=== PATIENT | female | born 1985 | race Caucasian/White ===

== ENCOUNTER → 2018-03-01 09:13 | Outpatient (CLI) | payer MEDICAID, SELFPAY ==
[2018-03-01 10:40] LABS: Microalbumin,Random Urine 8.8 mg/L (NO RANGE EST.); Microalbumin:Creatinine Ratio 11.8 mg/g CRE (<30 mg/g CRE)
[2018-03-01 10:53] LABS: AST(SGOT) 26 U/L (15-37); Alanine Aminotransfer ALT/SGPT 43 U/L (13-56); Albumin, Serum 3.6 g/dL (3.2-5.0); Alkaline Phosphatase 73 U/L (45-117); Anion Gap 9 (5-15); BUN 15 mg/dL (7-18); BUN/Creat Ratio 27.2 RATIO (10-20); Calcium,Total 8.4 mg/dL (8.5-10.1); Chloride 106 mmol/L (98-107); Creatinine, Serum 0.55 mg/dL (0.55-1.02); EST Glomerular Filtration Rate 135 mL/min (>60); Est Glom Filt Rate - Afr Amer 164 mL/min (>60); Globulin 3.6 g/dL (2.2-4.2); Glucose 104 mg/dL (74-106); Potassium 3.7 mmol/L (3.5-5.1); Protein, Total 7.2 g/dL (6.4-8.2); Sodium Level 143 mmol/L (136-145)
== END ==
PROVIDERS: Family Provider Family Medicine; PCP Family Medicine; Visit Provider Nurse Practitioner
DX: E10.9 Type 1 diabetes mellitus without complications (principal); Z79.4 Long term (current) use of insulin
CPT/HCPCS: 36415; 80053; 82043; 82570; 83036

== ENCOUNTER → 2018-11-08 08:23 | Outpatient (CLI) | payer MEDICAID, SELFPAY ==
[2018-09-09 12:43] VITALS: BMI 27.1
[2018-11-08 09:58] LABS: Hemoglobin A1c 9.2 % (4.2-6.3)
[2018-11-08 10:01] LABS: ALB/GLOB Ratio 1.1 RATIO (0.9-2.4); AST(SGOT) 28 U/L (15-37); Alanine Aminotransfer ALT/SGPT 49 U/L (13-56); Albumin, Serum 3.8 g/dL (3.2-5.0); Alkaline Phosphatase 73 U/L (45-117); Anion Gap 6 (5-15); BUN 10 mg/dL (7-18); BUN/Creat Ratio 18.8 RATIO (10-20); Calcium,Total 8.6 mg/dL (8.5-10.1); Chloride 105 mmol/L (98-107); Cholesterol 163 mg/dL (200); Creatinine, Serum 0.53 mg/dL (0.55-1.02); EST Glomerular Filtration Rate 140 mL/min (>60); Est Glom Filt Rate - Afr Amer 170 mL/min (>60); Globulin 3.4 g/dL (2.2-4.2); Glucose 92 mg/dL (74-106); High Density Lipoprotein 58 mg/dL; Potassium 3.6 mmol/L (3.5-5.1); Protein, Total 7.2 g/dL (6.4-8.2); Sodium Level 140 mmol/L (136-145); Triglycerides 68 mg/dL; Very Low Density Lipoprotein 14 mg/dL (5-40)
[2018-11-11 15:40] LABS: HPV Reflexed? NOT INDICATED
== END ==
PROVIDERS: Family Provider Family Medicine; PCP Family Medicine; Referring Provider Nurse Practitioner; Visit Provider Nurse Practitioner
DX: E10.65 Type 1 diabetes mellitus with hyperglycemia (principal); Z12.4 Encounter for screening for malignant neoplasm of cervix
CPT/HCPCS: 36415; 80053; 80061; 83036; 88175; G0145

== ENCOUNTER → 2019-06-09 09:14 | Outpatient (CLI) | payer MEDICAID, SELFPAY ==
[2018-09-09 12:43] VITALS: BMI 27.1
[2019-06-09 10:04] LABS: Absolute Lymphocyte Count 1.27 X10^3/uL (0.83-4.51); Absolute Neutrophil Count 1.3 X10^3/uL (2.0-7.7); Basophil# 0.03 X10^3/uL; Eosinophil# 0.13 X10^3/uL; Eosinophils% 4.3 % (0-5); Hematocrit 42.3 % (37-47); Hemoglobin 13.8 g/dL (12.0-15.0); Lymphocyte # 1.27 X10^3/ul (4.0); Lymphocyte % 42.1 % (19-41); Mean Corp Hgb Conc 32.6 g/dL (32-36); Mean Corpuscular Volume 88.9 fL (81-99); Mean Platelet Vol. 10.2 fl (6.2-12.0); Monocyte# 0.26 X10^3/uL; Monocyte% 8.6 % (0-10); NRBC Flagged by Analyzer 0 % (0-5); Neutrophil # 1.33 X10^3/uL (2.7-7.7); Platelet Count 180 K/mm3 (150-450); RBC Distribution Width CV 12.8 % (11.6-14.6); RBC Distribution Width SD 42.3 fl (35.1-43.9); Red Blood Count 4.76 M/mm3 (4.2-5.4)
[2019-06-09 10:18] LABS: Hemoglobin A1c 8.2 % (4.2-6.3)
[2019-06-09 10:21] LABS: Microalbumin,Random Urine 6.4 mg/L (NO RANGE EST.)
[2019-06-09 10:34] LABS: ALB/GLOB Ratio 1.1 RATIO (0.9-2.4); AST(SGOT) 21 U/L (15-37); Alanine Aminotransfer ALT/SGPT 36 U/L (13-56); Albumin, Serum 3.7 g/dL (3.2-5.0); Alkaline Phosphatase 61 U/L (45-117); Anion Gap 4 (5-15); BUN 14 mg/dL (7-18); BUN/Creat Ratio 24.1 RATIO (10-20); Calcium,Total 8.5 mg/dL (8.5-10.1); Chloride 108 mmol/L (98-107); Cholesterol 146 mg/dL (200); Creatinine, Serum 0.58 mg/dL (0.55-1.02); EST Glomerular Filtration Rate 126 mL/min (>60); Est Glom Filt Rate - Afr Amer 153 mL/min (>60); Globulin 3.4 g/dL (2.2-4.2); Glucose 152 mg/dL (74-106); High Density Lipoprotein 57 mg/dL; Potassium 3.9 mmol/L (3.5-5.1); Protein, Total 7.1 g/dL (6.4-8.2); Sodium Level 140 mmol/L (136-145); T4 Free Direct 0.97 ng/dL (0.76-1.46); Thyroid Stim Hormone (TSH) 2.63 uIU/mL (0.358-3.74); Triglycerides 50 mg/dL; Very Low Density Lipoprotein 10 mg/dL (5-40)
== END ==
PROVIDERS: Family Provider Family Medicine; PCP Family Medicine
DX: E10.65 Type 1 diabetes mellitus with hyperglycemia (principal)
CPT/HCPCS: 80053; 80061; 82043; 82570; 83036; 84439; 84443; 85025

== ENCOUNTER → 2019-09-14 09:53 | Outpatient (CLI) | payer MEDICAID, SELFPAY ==
[2018-09-09 12:43] VITALS: BMI 27.1
[2019-09-14 12:45] LABS: AST(SGOT) 20 U/L (15-37); Alanine Aminotransfer ALT/SGPT 38 U/L (13-56); Albumin, Serum 3.7 g/dL (3.2-5.0); Alkaline Phosphatase 73 U/L (45-117); Anion Gap 4 (5-15); BUN 17 mg/dL (7-18); BUN/Creat Ratio 27.2 RATIO (10-20); Calcium,Total 8.5 mg/dL (8.5-10.1); Chloride 106 mmol/L (98-107); Creatinine, Serum 0.62 mg/dL (0.55-1.02); EST Glomerular Filtration Rate 116 mL/min (>60); Est Glom Filt Rate - Afr Amer 140 mL/min (>60); Globulin 3.7 g/dL (2.2-4.2); Glucose 136 mg/dL (74-106); Potassium 3.2 mmol/L (3.5-5.1); Protein, Total 7.4 g/dL (6.4-8.2); Sodium Level 139 mmol/L (136-145)
[2019-09-14 13:05] LABS: Hemoglobin A1c 8.6 % (4.2-6.3)
== END ==
LOC: MTLAB 09:56
PROVIDERS: PCP Family Medicine
DX: E10.9 Type 1 diabetes mellitus without complications (principal)
CPT/HCPCS: 36415; 80053; 83036

== ENCOUNTER → 2019-11-11 09:39 | Outpatient (CLI) | payer MEDICAID, SELFPAY ==
[2018-09-09 12:43] VITALS: BMI 27.1
--- NOTE | 2019-11-11 09:53 | US_ITS ---
STUDY: ABDOMINAL ULTRASOUND - RIGHT UPPER QUADRANT REASON FOR VISIT: Female, 34 years old EPIGASTRIC PAIN X 2 YEARS -INTERMITTENT TECHNIQUE: Ultrasound evaluation of the right upper quadrant was performed with real-time and static valencia-scale imaging. TECHNICAL QUALITY: Adequate. COMPARISON: None. FINDINGS: Liver: The liver measures 14.6 cm. There is normal echogenicity of the liver. The bile ducts are within normal limits. There is hepatic color flow. The direction of portal flow is hepatopetal. There is no demonstrated mass lesion. Gallbladder: Normal distended gallbladder. The gallbladder wall measures 2.9 mm. There is a negative sonographic Albrecht''s sign. There is no pericholecystic fluid. There are no gallstones. Common Bile Duct (C.B.D.): The common bile duct measures 2.7 mm. Pancreas: Normal size of the head, body and tail of the pancreas. There is normal echogenicity of the pancreas. There is no demonstrated pancreatic mass or cyst. Right Kidney: Normal size of the right kidney. The right kidney measures 11.8 cm x 4.9 cm x 5.5 cm. Normal renal cortex. The right cortex measures 2.1 cm. There is no demonstrated renal mass or cyst. There is no right hydronephrosis. US/Abdomen Limited IMPRESSION: Normal right upper quadrant ultrasound examination. Electronically Signed: Romeo Ann, at 10:35 EDT , Service support ,
[2019-11-11 10:38] LABS: Glucose 195 mg/dL (74-106)
== END ==
PROVIDERS: Internal Medicine Endocrinology, Diabetes & Metabolism; PCP Family Medicine; Referring Provider Family Medicine; Visit Provider Family Medicine
DX: R10.84 Generalized abdominal pain (principal); E10.9 Type 1 diabetes mellitus without complications
CPT/HCPCS: 36415; 76705; 82947; 84681

== ENCOUNTER → 2019-12-16 12:20 | Outpatient (CLI) | payer MEDICAID, SELFPAY ==
[2018-09-09 12:43] VITALS: BMI 27.1
[2019-12-18 08:45] LABS: HCG BETA-SUBUNIT QUANT. < 1 mIU/mL (.)
== END ==
PROVIDERS: PCP Family Medicine; Referring Provider Family Medicine; Visit Provider Family Medicine
DX: N91.0 Primary amenorrhea (principal)
CPT/HCPCS: 36415; 84702

== ENCOUNTER → 2020-03-23 09:11 | Outpatient (CLI) | payer MEDICAID, SELFPAY ==
[2018-09-09 12:43] VITALS: BMI 27.1
[2020-03-23 12:51] LABS: AST(SGOT) 21 U/L (15-37); Alanine Aminotransfer ALT/SGPT 32 U/L (13-56); Albumin, Serum 3.6 g/dL (3.2-5.0); Alkaline Phosphatase 72 U/L (45-117); Anion Gap 5 (5-15); BUN 10 mg/dL (7-18); BUN/Creat Ratio 16.3 RATIO (10-20); Calcium,Total 8.3 mg/dL (8.5-10.1); Chloride 104 mmol/L (98-107); Cholesterol 175 mg/dL (200); Creatinine, Serum 0.61 mg/dL (0.55-1.02); EST Glomerular Filtration Rate 118 mL/min (>60); Est Glom Filt Rate - Afr Amer 143 mL/min (>60); Globulin 3.7 g/dL (2.2-4.2); Glucose 240 mg/dL (74-106); High Density Lipoprotein 49 mg/dL; Potassium 3.4 mmol/L (3.5-5.1); Protein, Total 7.3 g/dL (6.4-8.2); Sodium Level 136 mmol/L (136-145); T4 Free Direct 1.06 ng/dL (0.76-1.46); Thyroid Stim Hormone (TSH) 2.41 uIU/mL (0.358-3.74); Triglycerides 66 mg/dL; Very Low Density Lipoprotein 13 mg/dL (5-40)
[2020-03-23 12:53] LABS: Microalbumin,Random Urine 5.4 mg/L (NO RANGE EST.); Microalbumin:Creatinine Ratio 6.6 mg/g CRE (<30 mg/g CRE)
[2020-03-23 12:54] LABS: Hemoglobin A1c 9.4 % (3.8-5.6)
== END ==
PROVIDERS: PCP Family Medicine
DX: E10.65 Type 1 diabetes mellitus with hyperglycemia (principal)
CPT/HCPCS: 36415; 80053; 80061; 82043; 82570; 83036; 84439; 84443

== ENCOUNTER → 2020-08-13 09:32 | Outpatient (CLI) | payer MEDICAID, SELFPAY ==
[2018-09-09 12:43] VITALS: BMI 27.1
[2020-08-13 12:56] LABS: ALB/GLOB Ratio 1.1 RATIO (0.9-2.4); AST(SGOT) 16 U/L (15-37); Alanine Aminotransfer ALT/SGPT 36 U/L (13-56); Albumin, Serum 3.7 g/dL (3.2-5.0); Alkaline Phosphatase 81 U/L (45-117); Anion Gap 4 (5-15); BUN 12 mg/dL (7-18); BUN/Creat Ratio 20.7 RATIO (10-20); Calcium,Total 8.6 mg/dL (8.5-10.1); Chloride 105 mmol/L (98-107); Creatinine, Serum 0.58 mg/dL (0.55-1.02); EST Glomerular Filtration Rate 126 mL/min (>60); Est Glom Filt Rate - Afr Amer 152 mL/min (>60); Globulin 3.3 g/dL (2.2-4.2); Glucose 181 mg/dL (74-106); Potassium 3.5 mmol/L (3.5-5.1); Sodium Level 139 mmol/L (136-145)
[2020-08-13 13:23] LABS: Hemoglobin A1c 9.3 % (3.8-5.6)
== END ==
PROVIDERS: PCP Family Medicine
DX: E10.65 Type 1 diabetes mellitus with hyperglycemia (principal)
CPT/HCPCS: 36415; 80053; 83036

== ENCOUNTER → 2021-04-05 07:42 | Outpatient (CLI) | payer MEDICAID, SELFPAY ==
[2018-09-09 12:43] VITALS: BMI 27.1
[2021-04-05 10:08] LABS: Absolute Lymphocyte Count 1.51 X10^3/uL (0.83-4.51); Absolute Neutrophil Count 2.8 X10^3/uL (2.0-7.7); Basophil# 0.04 X10^3/uL; Basophil% 0.8 % (0-1); Eosinophil# 0.14 X10^3/uL; Eosinophils% 2.8 % (0-5); Hematocrit 42.4 % (37-47); Hemoglobin 13.9 g/dL (12.0-15.0); Lymphocyte # 1.51 X10^3/ul (0.83-4.51); Lymphocyte % 30.7 % (19-41); Mean Corp Hgb Conc 32.8 g/dL (32-36); Mean Corpuscular Hgb 29.3 pg (27.0-32.0); Mean Corpuscular Volume 89.3 fL (81-99); Mean Platelet Vol. 10.3 fl (6.2-12.0); Monocyte# 0.45 X10^3/uL; Monocyte% 9.1 % (0-10); NRBC Flagged by Analyzer 0 % (0-5); Neutrophil # 2.78 X10^3/uL (2.7-7.7); Neutrophil % 56.6 % (47-70); Platelet Count 212 K/mm3 (150-450); RBC Distribution Width CV 12.1 % (11.6-14.6); RBC Distribution Width SD 40.3 fl (35.1-43.9); Red Blood Count 4.75 M/mm3 (4.2-5.4); White Blood Count 4.9 K/mm3 (4.4-11.0)
[2021-04-05 10:31] LABS: Hemoglobin A1c 6.5 % (3.8-5.6)
[2021-04-05 10:36] LABS: AST(SGOT) 24 U/L (15-37); Alanine Aminotransfer ALT/SGPT 45 U/L (13-56); Albumin, Serum 3.6 g/dL (3.2-5.0); Alkaline Phosphatase 89 U/L (45-117); Anion Gap 6 (5-15); BUN 19 mg/dL (7-18); BUN/Creat Ratio 28.5 RATIO (10-20); Calcium,Total 8.6 mg/dL (8.5-10.1); Chloride 106 mmol/L (98-107); Cholesterol 171 mg/dL (200); Creatinine, Serum 0.67 mg/dL (0.55-1.02); EST Glomerular Filtration Rate 107 mL/min (>60); Est Glom Filt Rate - Afr Amer 129 mL/min (>60); Globulin 3.7 g/dL (2.2-4.2); Glucose 140 mg/dL (74-106); High Density Lipoprotein 47 mg/dL; Potassium 3.8 mmol/L (3.5-5.1); Protein, Total 7.3 g/dL (6.4-8.2); Sodium Level 138 mmol/L (136-145); T4 Free Direct 0.89 ng/dL (0.76-1.46); Thyroid Stim Hormone (TSH) 5.48 uIU/mL (0.358-3.74); Triglycerides 100 mg/dL; Very Low Density Lipoprotein 20 mg/dL (5-40)
[2021-04-05 10:41] LABS: Microalbumin,Random Urine < 5.0 mg/L (NO RANGE EST.)
== END ==
PROVIDERS: PCP Family Medicine
DX: E10.9 Type 1 diabetes mellitus without complications (principal)
CPT/HCPCS: 36415; 80053; 80061; 82043; 82570; 83036; 84439; 84443; 85025

== ENCOUNTER → 2021-04-24 10:17 | Outpatient (CLI) | payer MEDICAID, SELFPAY ==
[2021-04-24 12:38] LABS: T4 Free Direct 0.91 ng/dL (0.76-1.46); Thyroid Stim Hormone (TSH) 1.84 uIU/mL (0.358-3.74)
== END ==
PROVIDERS: PCP Family Medicine
DX: R79.89 Other specified abnormal findings of blood chemistry (principal)
CPT/HCPCS: 36415; 84439; 84443

== ENCOUNTER → 2021-07-30 10:58 | Outpatient (CLI) | payer MEDICAID, SELFPAY ==
[2021-07-30 13:06] LABS: AST(SGOT) 17 U/L (15-37); Alanine Aminotransfer ALT/SGPT 34 U/L (13-56); Albumin, Serum 3.5 g/dL (3.2-5.0); Alkaline Phosphatase 90 U/L (45-117); Anion Gap 7 (5-15); BUN 13 mg/dL (7-18); BUN/Creat Ratio 20.8 RATIO (10-20); Calcium,Total 8.5 mg/dL (8.5-10.1); Chloride 103 mmol/L (98-107); Creatinine, Serum 0.63 mg/dL (0.55-1.02); EST Glomerular Filtration Rate 115 mL/min (>60); Est Glom Filt Rate - Afr Amer 139 mL/min (>60); Globulin 3.6 g/dL (2.2-4.2); Glucose 234 mg/dL (74-106); Potassium 3.9 mmol/L (3.5-5.1); Protein, Total 7.1 g/dL (6.4-8.2); Sodium Level 137 mmol/L (136-145); T4 Free Direct 1.02 ng/dL (0.76-1.46)
[2021-07-30 13:09] LABS: Hemoglobin A1c 6.7 % (3.8-5.6)
== END ==
PROVIDERS: PCP Family Medicine
DX: E10.9 Type 1 diabetes mellitus without complications (principal)
CPT/HCPCS: 36415; 80053; 83036; 84439; 84443

== ENCOUNTER → 2021-11-30 09:41 | Outpatient (CLI) | payer MEDICAID, SELFPAY ==
[2021-11-30 10:56] LABS: Hemoglobin A1c 6.8 % (3.8-5.6)
[2021-11-30 11:23] LABS: AST(SGOT) 35 U/L (15-37); Alanine Aminotransfer ALT/SGPT 62 U/L (13-56); Albumin, Serum 3.4 g/dL (3.2-5.0); Alkaline Phosphatase 104 U/L (45-117); Anion Gap 4 (5-15); BUN 13 mg/dL (7-18); Calcium,Total 8.5 mg/dL (8.5-10.1); Chloride 106 mmol/L (98-107); Cholesterol 157 mg/dL (200); Creatinine, Serum 0.59 mg/dL (0.55-1.02); EST Glomerular Filtration Rate 122 mL/min (>60); Est Glom Filt Rate - Afr Amer 148 mL/min (>60); Globulin 3.5 g/dL (2.2-4.2); Glucose 193 mg/dL (74-106); High Density Lipoprotein 55 mg/dL; Microalbumin,Random Urine < 5.0 mg/L (NO RANGE EST.); Potassium 3.9 mmol/L (3.5-5.1); Protein, Total 6.9 g/dL (6.4-8.2); Sodium Level 138 mmol/L (136-145); T4 Free Direct 0.89 ng/dL (0.76-1.46); Triglycerides 64 mg/dL; Very Low Density Lipoprotein 13 mg/dL (5-40)
== END ==
PROVIDERS: PCP Family Medicine
DX: E10.9 Type 1 diabetes mellitus without complications (principal)
CPT/HCPCS: 36415; 80053; 80061; 82043; 82570; 83036; 84439

== ENCOUNTER → 2022-05-29 | Outpatient (CLI) | payer MEDICAID, SELFPAY ==
[2022-05-29 12:53] LABS: ALB/GLOB Ratio 0.9 RATIO (0.9-2.4); AST(SGOT) 29 U/L (15-37); Alanine Aminotransfer ALT/SGPT 46 U/L (13-56); Albumin, Serum 3.5 g/dL (3.2-5.0); Alkaline Phosphatase 88 U/L (45-117); Anion Gap 6 (5-15); BUN 13 mg/dL (7-18); BUN/Creat Ratio 18.3 RATIO (10-20); Calcium,Total 8.8 mg/dL (8.5-10.1); Chloride 105 mmol/L (98-107); Cholesterol 170 mg/dL (200); Creatinine, Serum 0.71 mg/dL (0.55-1.02); EST Glomerular Filtration Rate 98 mL/min (>60); Est Glom Filt Rate - Afr Amer 119 mL/min (>60); Globulin 3.7 g/dL (2.2-4.2); Glucose 144 mg/dL (74-106); High Density Lipoprotein 57 mg/dL; Potassium 3.6 mmol/L (3.5-5.1); Protein, Total 7.2 g/dL (6.4-8.2); Sodium Level 140 mmol/L (136-145); Triglycerides 80 mg/dL; Very Low Density Lipoprotein 16 mg/dL (5-40)
[2022-05-29 13:27] LABS: Hemoglobin A1c 6.9 % (3.8-5.6)
[2022-05-29 14:41] LABS: Microalbumin,Random Urine < 5.0 mg/L (NO RANGE EST.)
== END | disposition home or self-care (01) ==
LOC: BIMLAB 08:17
PROVIDERS: PCP Family Medicine
DX: E10.9 Type 1 diabetes mellitus without complications (principal)
CPT/HCPCS: 36415; 80053; 80061; 82043; 82570; 83036

== ENCOUNTER → 2022-09-29 | Outpatient (CLI) | payer MEDICAID, SELFPAY ==
[2022-09-29 13:00] LABS: ALB/GLOB Ratio 0.9 RATIO (0.9-2.4); AST(SGOT) 19 U/L (15-37); Alanine Aminotransfer ALT/SGPT 39 U/L (13-56); Albumin, Serum 3.6 g/dL (3.2-5.0); Alkaline Phosphatase 82 U/L (45-117); Anion Gap 9 (5-15); BUN 14 mg/dL (7-18); BUN/Creat Ratio 20.6 RATIO (10-20); Calcium,Total 8.8 mg/dL (8.5-10.1); Chloride 102 mmol/L (98-107); Creatinine, Serum 0.68 mg/dL (0.55-1.02); EST Glomerular Filtration Rate 104 mL/min (>60); Est Glom Filt Rate - Afr Amer 125 mL/min (>60); Glucose 96 mg/dL (74-106); Potassium 3.8 mmol/L (3.5-5.1); Protein, Total 7.6 g/dL (6.4-8.2); Sodium Level 139 mmol/L (136-145); Thyroid Stim Hormone (TSH) 3.33 uIU/mL (0.358-3.74)
[2022-09-29 13:08] LABS: Hemoglobin A1c 6.4 % (3.8-5.6)
== END | disposition home or self-care (01) ==
PROVIDERS: PCP Family Medicine
DX: E10.9 Type 1 diabetes mellitus without complications (principal)
CPT/HCPCS: 36415; 80053; 83036; 84439; 84443

== ENCOUNTER → 2023-03-09 | Outpatient (CLI) | payer MEDICAID, SELFPAY ==
[2023-03-09 13:11] LABS: ALB/GLOB Ratio 0.9 RATIO (0.9-2.4); AST(SGOT) 21 U/L (15-37); Alanine Aminotransfer ALT/SGPT 31 U/L (13-56); Albumin, Serum 3.5 g/dL (3.2-5.0); Alkaline Phosphatase 81 U/L (45-117); Anion Gap 4 (5-15); BUN 7 mg/dL (7-18); BUN/Creat Ratio 10.6 RATIO (10-20); Calcium,Total 8.8 mg/dL (8.5-10.1); Chloride 107 mmol/L (98-107); Cholesterol 157 mg/dL (200); Creatinine, Serum 0.66 mg/dL (0.55-1.02); EST Glomerular Filtration Rate 107 mL/min (>60); Est Glom Filt Rate - Afr Amer 130 mL/min (>60); Globulin 3.7 g/dL (2.2-4.2); Glucose 184 mg/dL (74-106); High Density Lipoprotein 54 mg/dL; Potassium 4.1 mmol/L (3.5-5.1); Protein, Total 7.2 g/dL (6.4-8.2); Sodium Level 138 mmol/L (136-145); Triglycerides 78 mg/dL; Very Low Density Lipoprotein 16 mg/dL (5-40)
[2023-03-09 13:30] LABS: Hemoglobin A1c 7.1 % (3.8-5.6)
== END | disposition home or self-care (01) ==
PROVIDERS: PCP Family Medicine
DX: E10.9 Type 1 diabetes mellitus without complications (principal)
CPT/HCPCS: 36415; 80053; 80061; 83036

== ENCOUNTER → 2023-07-06 | Outpatient (CLI) | payer MEDICAID, SELFPAY ==
[2023-07-06 12:40] LABS: Microalbumin,Random Urine 5.3 mg/L (NO RANGE EST.); Microalbumin:Creatinine Ratio 6.6 mg/g CRE (<30 mg/g CRE)
[2023-07-06 12:47] LABS: ALB/GLOB Ratio 1.1 RATIO (0.9-2.4); AST(SGOT) 18 U/L (15-37); Alanine Aminotransfer ALT/SGPT 31 U/L (13-56); Albumin, Serum 3.5 g/dL (3.2-5.0); Alkaline Phosphatase 55 U/L (45-117); Anion Gap 4 (5-15); BUN 12 mg/dL (7-18); BUN/Creat Ratio 16.4 RATIO (10-20); Calcium,Total 8.2 mg/dL (8.5-10.1); Chloride 105 mmol/L (98-107); Creatinine, Serum 0.73 mg/dL (0.55-1.02); EST Glomerular Filtration Rate 95 mL/min (>60); Est Glom Filt Rate - Afr Amer 115 mL/min (>60); Globulin 3.2 g/dL (2.2-4.2); Glucose 204 mg/dL (74-106); Potassium 3.9 mmol/L (3.5-5.1); Protein, Total 6.7 g/dL (6.4-8.2); Sodium Level 138 mmol/L (136-145); Thyroid Stim Hormone (TSH) 3.01 uIU/mL (0.358-3.74)
[2023-07-06 13:05] LABS: Hemoglobin A1c 6.9 % (3.8-5.6)
== END | disposition home or self-care (01) ==
LOC: BIMLAB 09:01
PROVIDERS: PCP Family Medicine
DX: E10.9 Type 1 diabetes mellitus without complications (principal)
CPT/HCPCS: 36415; 80053; 82043; 82570; 83036; 84439; 84443

== ENCOUNTER → 2023-11-06 | Outpatient (CLI) | payer MEDICAID, SELFPAY ==
--- OUTSIDE RECORDS SUMMARY | 2023-11-06 08:29 | XMS RPT_ITS | CCD ---
Author Name Unknown Address [address] [place] [address] Organization [facility] Care Team Providers Care Ore Charger Name Role Phone ELY LEVY Unavailable Unavasusana pugh BENEKOS, DORENE L Unavailable Unavailable PAVEL, GERARDO J Unavailable Unavailable HUNT, HIPOLITO Unavailable Unavailable BENEKOS, DORENE L Unavailable Unavailable PAVEL, GERARDO J Unavailable Unavailable TOVA, ERIK T Unavailable Unavailable BENEKOS, DORENE L Unavailable Unavailable PAVEL, GERARDO J Unavailable Unavailable TOVA, ERIK T Unavailable Unavailable BENEKOS, DORENE L Unavailable Unavailable PAVEL, GERARDO J Unavailable Unavailable TOVA, ERIK T Unavailable Unavailable BENEKOS, DORENE L Unavailable Unavailable PAVEL, GERARDO J Unavailable Unavailable TOVA, ERIK T Unavailable Unavailable BENEKOS, DORENE L Unavailable Unavailable PAVEL, GERARDO J Unavailable Unavailable BENEKOS, DORENE L Unavailable Unavailable HUNT, HIPOLITO Unavailable Unavailable PAVEL, GERARDO J Unavailable Unavailable BENEKOS, DORENE L Unavailable Unavailable HUNT, HIPOLITO Unavailable Unavailable PAVEL, GERARDO J Unavailable Unavailable TOVA, ERIK T Unavailable Unavailable BENEKOS, DORENE L Unavailable Unavailable PAVEL, GERARDO J Unavailable Unavailable TOVA, ERIK T Unavailable Unavailable BENEKOS, DORENE L Unavailable Unavailable PAVEL, GERARDO J Unavailable Unavailable BENEKOS, DORENE L Unavailable Unavailable HUNT, HIPOLITO Unavailable Unavailable PAVEL, GERARDO J Unavailable Unavailable TOVA, ERIK T Unavailable Unavailable BENEKOS, DORENE L Unavailable Unavailable PAVEL, GERARDO J Unavailable Unavailable TOVA, ERIK T Unavailable Unavailable BENEKOS, DORENE L Unavailable Unavailable PAVEL, GERARDO J Unavailable Unavailable TOVA, ERIK T Unavailable Unavailable BENEKOS, DORENE L Unavailable Unavailable PAVEL, GERARDO J Unavailable Unavailable TOVA, ERIK T Unavailable Unavailable BENEKOS, DORENE L Unavailable Unavailable PAVEL, GERARDO J Unavailable Unavailable TOVA, ERIK T Unavailable Unavailable BENEKOS, DORENE L Unavailable Unavailable PAVEL, GERARDO J Unavailable Unavailable TOVA, ERIK T Unavailable Unavailable BENEKOS, DORENE L Unavailable Unavailable PAVEL, GERARDO J Unavailable Unavailable TOVA, ERIK T Unavailable Unavailable BENEKOS, DORENE L Unavailable Unavailable PAVEL, GERARDO J Unavailable Unavailable BENEKOS, DORENE L Unavailable Unavailable PAVEL, GERARDO J Unavailable Unavailable DUNCAN, ERIK L Unavailable Unavailable BENEKOS, DORENE L Unavailable Unavailable PAVEL, GERARDO J Unavailable Unavailable DUNCAN, ERIK L Unavailable Unavailable BENEKOS, DORENE L Unavailable Unavailable PAVEL, GERARDO J Unavailable Unavailable EHRENBERG BUCHNER, ELY Unavailable Unavai lable BENEKOS, DORENE L Unavailable Unavailable PAVEL, GERARDO J Unavailable Unavailable EHRENBERG BUCHNER, ELY Unavailable Unavai lable TOVA, ERIK T Unavailable Unavailable BENEKOS, DORENE L Unavailable Unavailable PAVEL, GERARDO J Unavailable Unavailable TOVA, ERIK T Unavailable Unavailable ZEINA CHAPIN M Unavailable Unavailable PAVEL, GERARDO J Unavailable Unavailable BENEKOS, DORENE L Unavailable Unavailable HUNT, HIPOLITO Unavailable Unavailable PAVEL, GERARDO J Unavailable Unavailable BENEKOS, DORENE L Unavailable Unavailable PAVEL, GERARDO J Unavailable Unavailable BACAK, MESERET J Unavailable Unavailable BENEKOS, DORENE L Unavailable Unavailable HUNT, HIPOLITO Unavailable Unavailable PAVEL, GERARDO J Unavailable Unavailable BENEKOS, DORENE L Unavailable Unavailable HUNT, HIPOLITO Unavailable Unavailable PAVEL, GERARDO J Unavailable Unavailable HUNT, HIPOLITO Unavailable Unavailable PAVEL, GERARDO J Unavailable Unavailable DUNCAN, ERIK L Unavailable Unavailable PAVEL, GERARDO J Unavailable Unavailable BACAK, MESERET J Unavailable Unavailable BACAK, MESERET J Unavailable Unavailable EHRENBERG BUCHNER, ELY Unavailable Unavai lable EHRENBERG BUCHNER, ELY Unavailable Unavai lable KENNA ROWAN Unavailable Unavailab le HUNT, HIPOLITO Unavailable Unavailable HUNT, HIPOLITO Unavailable Unavailable EHRENBERG, ELY Unavailable Unavailable EHRENBERG, ELY Unavailable Unavailable KENNA DEMPSEY Unavailable Unavailable Marina Ley Primary Care Provider Moncho Greco Primary Care Provider CruzMoncho Cesar Primary Care Provider Unavailabl e Marina Ley Ashley Primary Care Provider [phone] Marina Ley Ashley Primary Care Provider Av RECINOS, Marina Cristinaer Primary Care Provider Av RECINOS, Marina Ashley Primary Care Provider Marina Ley MD Primary Care Provider [phone] REBECCA MEDEIROS Attending Unavailable JOLLIFF, MARINA ASHLEY Primary Care Unavailable JOLLLAM, MARINA ASHLEY Primary Care Unavailable JARRETT WAITE Attending Unavailab MARION Wan Attending Unavailable JOLLIFF, MARINA ASHLEY Primary Care Unavailable JOLLLAM, MARINA ASHLEY Primary Care Unavailable REBECCA MEDEIROS Attending Unavailable JOLLIFF, MARINA ASHLEY Primary Care Unavailable REBECCA MEDEIROS Attending Unavailable JOLLIFF, MARINA ASHLEY Primary Care Unavailable MARION URIAS Attending Unavailable Allergies Allergy Classification Reported Allergen(s) Allergy Type Date of Onset Reaction(s) Facility HMG-CoA Reductase Inhibitors (statins) (1 source) Lovastatin Drug Allergy 9 [facility] (20 sources) lovastatin; Translations: [LOVASTATIN] Drug Allergy 5 Other: See Comments [facility] Repository Medications Current Medications Medication Drug Class(es) Dates Sig (Normalized) Sig (Original) blood-glucose meter Misc (14 sources) Start: 09-06-2020 blood-glucose meter Misc Use to check BG 4 times daily. Dg code E11.65 . 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; Translations: [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] Onset: 08-08-2017 Chronic Other screening for suspected conditions (not mental disorders or infectious disease) (1 source) Raised TSH level; Translations: [Other specified abnormal findings of blood chemistry] Episodic Unclassified (1 source) Unknown / UNK(Unknown) Onset: 08-12-2017 Past or Other Problems Problem Classification Problem Date Documented Date Episodic/Chronic Cardiac dysrhythmias (1 source) Palpitations; Translations: [Palpitations] Onset: 08-26-2016 08-26-2016 Episodic Diabetes mellitus without complication (1 source) Insulin pump present; Translations: [Insulin pump status] Onset: 04-10-2016 08-08-2017 Episodic Diabetes mellitus without complication (1 source) Diabetes mellitus without complication Onset: 08-12-2017 Other nervous system disorders (1 source) Other acute postprocedural pain; Translations: [Other acute postprocedural pain] Onset: 08-08-2017 Episodic Polyhydramnios and other problems of amniotic cavity (2 sources) premature rupture of membranes, onset of labor within 24 hours of rupture, unspecified trimester; Translations: [ premature rupture of membranes ] Onset: 08-08-2017 08-08-2017 Episodic Results Test Name Value Interpretation Reference Range Facil ity Vital Signs Date Time Vital Sign Value Performing Clinician Zainab estes 07-13-2023 09:10-0500 Body mass index (BMI) [Ratio] 35.43 kg/m2 Jarrett Waite CNP Work Phone: [facility] 07-13-2023 09:10-0500 Body weight 90.72 kg Jarrett Waite CNP Work Phone: [facility] 07-13-2023 09:10-0500 Diastolic blood pressure 84 mm[Hg] Jarrett Waite CNP Work Phone: [facility] 07-13-2023 09:10-0500 Heart rate 87 /min Jarrett Waite CNP Work Phone: [facility] 07-13-2023 09:10-0500 Systolic blood pressure 126 mm[Hg] Jarrett Blas ANODIZER Work Phone: [facility] 03-11-2023 08:55-0400 Body height 160 cm Marion Urias CNP Work Phone: [facility] 03-11-2023 08:55-0400 Body mass index (BMI) [Ratio] 35.43 kg/m2 Marion Urias CNP Work Phone: [facility] 03-11-2023 08:55-0400 Body weight 90.72 kg Marion Urias CNP Work Phone: [facility] 03-11-2023 08:55-0400 Diastolic blood pressure 78 mm[Hg] Marion Urias CNP Work Phone: [facility] 03-11-2023 08:55-0400 Heart rate 89 /min Marion Urias CNP Work Phone: [facility] 03-11-2023 08:55-0400 Systolic blood pressure 117 mm[Hg] Marion Urias CNP Work Phone: [facility] 06-02-2022 11:06-0400 Body height 160 cm Marion Urias CNP Work Phone: [facility] 06-02-2022 11:06-0400 Body mass index (BMI) [Ratio] 35.78 kg/m2 Marion Urias CNP Work Phone: [facility] 06-02-2022 11:06-0400 Body weight 91.63 kg Marion Urias CNP Work Phone: [facility] 06-02-2022 11:06-0400 Diastolic blood pressure 82 mm[Hg] Marion Urias CNP Work Phone: [facility] 06-02-2022 11:06-0400 Heart rate 76 /min Marion Urias CNP Work Phone: [facility] 06-02-2022 11:06-0400 Systolic blood pressure 128 mm[Hg] Marion Urias CNP Work Phone: [facility] 12-02-2021 11:15-0400 Body height 160 cm Xu Blas Work Phone: [facility] 12-02-2021 11:15-0400 Body mass index (BMI) [Ratio] 35.69 kg/m2 Xu Kleinmann PA-C Work Phone: [facility] 12-02-2021 11:15-0400 Body weight 91.4 kg Xu Kleinmann PA- C Work Phone: [facility] 12-02-2021 11:15-0400 Diastolic blood pressure 75 mm[Hg] Xu Kleinmann PA-C Work Phone: [facility] 12-02-2021 11:15-0400 Heart rate 82 /min Xu Kleinmann PA- C Work Phone: [facility] 12-02-2021 11:15-0400 Systolic blood pressure 115 mm[Hg] Xu Kleinmann PA-C Work Phone: [facility] 08-05-2021 11:02-0500 Body height 160 cm Marion Urias BEAMER HAND Work Phone: [facility] 08-05-2021 11:02-0500 Body mass index (BMI) [Ratio] 34.77 kg/m2 Marion Urias BEAMER HAND Work Phone: [facility] 08-05-2021 11:02-0500 Body weight 89.04 kg Marion Urias BEAMER HAND Work Phone: [facility] 08-05-2021 11:02-0500 Diastolic blood pressure 78 mm[Hg] Marion Urias BEAMER HAND Work Phone: [facility] 08-05-2021 11:02-0500 Heart rate 74 /min Marion Urias BEAMER HAND Work Phone: [facility] 08-05-2021 11:02-0500 Systolic blood pressure 125 mm[Hg] Marion Urias BEAMER HAND Work Phone: [facility] 04-08-2021 11:08-0400 Body height 160 cm Xu Kleinmann PA- C Work Phone: [facility] 04-08-2021 11:08-0400 Body mass index (BMI) [Ratio] 33.83 kg/m2 Xu Kleinmann PA-C Work Phone: [facility] 04-08-2021 11:08-0400 Body weight 86.64 kg Xu Stevensmann PA- C Work Phone: [facility] 04-08-2021 11:08-0400 Diastolic blood pressure 80 mm[Hg] Xu Kleinmann PA-C Work Phone: [facility] 04-08-2021 11:08-0400 Heart rate 77 /min Xu Stevensmann PA- C Work Phone: [facility] 04-08-2021 11:08-0400 Systolic blood pressure 127 mm[Hg] Xu Kleinmann PA-C Work Phone: [facility] 12-04-2020 10:42-0400 BMI (Body Mass Index) 31.53 kg/m2 Jarrett Waite [facility] 12-04-2020 10:42-0400 Body weight 80.74 kg Jarrett [facility] 12-04-2020 10:42-0400 BP Diastolic 76 mm[Hg] Jarrett [facility] 12-04-2020 10:42-0400 BP Systolic 113 mm[Hg] Jarrett [facility] 12-04-2020 10:42-0400 Height 160 cm Jarrett [facility] 12-04-2020 10:42-0400 Pulse (Heart Rate) 75 /min Jarrettshaun Waite [facility] 09-05-2020 10:53-0500 BMI (Body Mass Index) 28.36 kg/m2 Emmy Jacob [facility] 09-05-2020 10:53-0500 Body weight 74.84 kg Emmy Jacob [facility] 09-05-2020 10:53-0500 BP Diastolic 75 mm[Hg] Emmy Jacob [facility] 09-05-2020 10:53-0500 BP Systolic 119 mm[Hg] Emmy Jacob [facility] 09-05-2020 10:53-0500 Height 162.5 cm Emmy Jacob [facility] 09-05-2020 10:53-0500 Pulse (Heart Rate) 83 /min Emmy Jacob [facility] 03-26-2020 10:34-0400 BMI (Body Mass Index) 28.24 kg/m2 Marion Urias [facility] 03-26-2020 10:34-0400 Body weight 74.53 kg Marion Urias [facility] 03-26-2020 10:34-0400 BP Diastolic 78 mm[Hg] Marion Urias [facility] 03-26-2020 10:34-0400 BP Systolic 120 mm[Hg] Marion Urias [facility] 03-26-2020 10:34-0400 Pulse (Heart Rate) 73 /min Marion Urias [facility] 03-26-2020 10:34-0400 Pulse Oximetry 98 % Marion Urias [facility] 03-26-2020 10:34-0400 Respiratory Rate 18 /min Marionmichi Urias [facility] 09-21-2019 11:30-0500 BMI (Body Mass Index) 29.9 kg/m2 Marionmichi Urias [facility] 09-21-2019 11:30-0500 Body weight 78.93 kg Marion Urias [facility] 09-21-2019 11:30-0500 BP Diastolic 72 mm[Hg] Marionmichi Urias [facility] 09-21-2019 11:30-0500 BP Systolic 123 mm[Hg] Marionmichi Urias [facility] 09-21-2019 11:30-0500 Height 162.5 cm Marion Urias [facility] 09-21-2019 11:30-0500 Pulse (Heart Rate) 85 /min Marion Urias [facility] 06-20-2019 11:12-0400 BMI (Body Mass Index) 28.44 kg/m2 [facility] 06-20-2019 11:12-0400 Body weight 75.07 kg [facility] 06-20-2019 11:12-0400 BP Diastolic 74 mm[Hg] [facility] 06-20-2019 11:12-0400 BP Systolic 112 mm[Hg] [facility] 06-20-2019 11:12-0400 Height 162.5 cm [facility] 06-20-2019 11:12-0400 Pulse (Heart Rate) 76 /min [facility] 03-17-2019 11:09-0400 BP Diastolic 79 mm[Hg] [facility] 03-17-2019 11:09-0400 BP Systolic 120 mm[Hg] [facility] 03-17-2019 11:09-0400 Pulse (Heart Rate) 76 /min [facility] 11:05-0400 BMI (Body Mass Index) 27.5 kg/m2 Xu Reid [facility] 03-17-2019 11:05-0400 Body [facility] 11:050400 Height [facility].6 [facility] Encounter Date Encounter Type Care Provider Facility Start: 10-12-2023 ambulatory MARINA LEY [facility]: [facility]: 07-13-2023 End: 07-13-2023 ambulatory MARINA LEY [facility] Start: 07-13-2023 End: 07-13-2023 Office outpatient visit 25 minutes Jarrett Waite CNP Work Phone: [facility] Procedures Date Procedure Procedure Detail Performing Clinician Start: 07-06-2023 Microalbumin [Mass/v olume] in Urine by Test strip Jarrett Waite CNP Work Phone: Start: 03-11-2023 3 comp foot exam completed Marion Urias CNP Work Phone: Start: 10-06-2022 3 comp foot exam completed Jarrett Waite CNP Work Phone: Start: 06-02-2022 3 comp foot exam completed Marion Urias CNP Work Phone: Start: 12-02-2021 MISCELLANEOUS DME EQUIPMENT Xu Reid PA-C Work Phone: Start: 12-02-2021 3 comp foot exam completed Xu Reid PA-C Work Phone: Start: 11-30-2021 EXT LAB COMPREHENSIV E METABOLIC Xu Reid PA-C Work Phone: Start: 11-30-2021 EXT LAB MICROALBUMIN/CREATININE RATIO Xu Reid PA-C Work Phone: Start: 11-30-2021 EXT LAB T4, FREE Xu Reid PA-C Work Phone: Start: 11-30-2021 Hemoglobin A1c/Hemoglobin.total in Blood Xu Reid PA-C Work Phone: Start: 11-30-2021 Plasma lipid measurement Xu Reid PA-C Work Phone: Start: 08-05-2021 3 comp foot exam completed Marion Urias CNP Work Phone: Start: 04-08-2021 3 comp foot exam completed Xu Reid PA-C Work Phone: Start: 12-04-2020 3 comp foot exam completed Jarrett Waite Start: 09-05-2020 3 comp foot exam completed Emmy Jacob Start: 09-21-2019 3 comp foot exam completed Marion Urias Start: 06-09-2019 Microalbumin [Mass/v olume] in Urine by Test strip Xu Reid PA-C Work Phone: Start: 03-17-2019 Hemoglobin A1c/Hemoglobin.total in Blood Xu Reid Work Phone: Start: 03-17-2019 3 comp foot exam completed Xu Reid Start: 04-11-2015 CONVERTED CYTOLOGY ENGINEERING TECHNICAL ANALYST Zeina Martini Work Phone: Plan of Treatment Date Care Activity Detail Author Start: 08-10-2027 Tetanus vaccination [facility] Start: 08-10-2027 Urine microalbumin profile DTAP,TDAP,TD (2 - Td) [facility] Start: 07-06-2024 Urine screening for protein Urine Microalbumin [facility] Start: 03-11-2024 Diabetic foot examination Foot Exam [facility] Start: 01-04-2024 Hemoglobin A1c measurement A1C [facility] Start: 11-13-2023 End: 11-13-2023 Patient encounter procedure 11/13/2023 9:45 AM EDT Office Visit [facility] [address] [place] [phone] Jarrett Waite, [place] [address] [place] [address] [facility] Start: 10-23-2023 End: 07-13-2024 Complete blood count with white cell differential, manual CBC and Differential Lab Routine Type 1 diabetes mellitus without complication (HCC) Expected: 10/23/2023, Expires: 07/13/2024 [facility] Payers Date Payer Category Payer Medicaid [id number] 2017 Medicaid [facility] xxxxxxxxxxx 2017-Present xxxxxxxxxxx [id number] 2017 Medicaid [id number] 2017 Medicaid [id number] 2017 Unknown [id number] 2011 Unknown [employer] PPO [id number] 2011-2015 PPO [id number] 1985 Unknown [id number] 1985 Unknown [id number] 1985 Unknown [id number] 1985 Unknown [id number] 1985 Unknown [id number] 1985 Unknown [id number] Social History Date Type Detail Facility Start: 03-17-2019 End: 10-06-2022 Tobacco smoking status NHIS Never smoker [facility] Start: 1985 Sex Assigned At Not on file [facility] Start: 10-21-2011 End: 10-06-2022 Tobacco use and exposure Never used [facility] Start: 10-21-2011 Alcohol intake Current non-dr boarding room fixer of alcohol (finding) [facility] Start: 11-22-2021 End: 06-02-2022 Exposure to SARS-CoV-2 (event) Not sure [facility] Start: 10-06-2022 End: 03-11-2023 History of Social function [facility] Start: 10-06-2022 End: 03-11-2023 Tobacco use panel [facility] Start: 10-06-2022 Gender identity Identifies as female gender (finding) [facility] Start: 10-06-2022 Sexual orientation Heterosexual (fin ding) [facility] Medical Equipment Procedure Code Equipment Code Equipment Origin al Text Equipment Identifier Dates [id number], [id number] Star t: 09-01-2011 Clinical Notes 04-08-2021 to 07-13-2023 Jarrett Waite, [place] - 07/13/2023 9:27 AM ESTPatient InstructionsMarion Urias, [place] - 03/11/2023 9:00 AM EDTPatient InstructionsMarion Urias CNP - 06/02/2022 11:13 AM EDT Note Date & Type Note Facility 07-13-2023 History of Presen t illness Narrative Images from the original note were not included. Patient ID: Matthew Patton is a 37 y.o. female 1985 Subjective: Matthew Patton presents for follow up of Type 1 diabetes Diagnosed at 16 years old HPI Ms. Patton is a 37-year-old female patient who presents the office today for follow-up of her type 1 diabetes. She is currently utilizing a T-Slim insulin pump and a Dexcom CGM in control IQ, both were downloaded and reviewed today. She denies any significant complaints today and reports has been feeling well. Current Outpatient Medications Medication Sig Dispense Refill blood sugar diagnostic (glucose blood) strips Use as directed: four times daily. E11.65 . 150 each 11 blood-glucose meter Misc Use to check BG 4 times daily. Dg code E11.65 . 150 each 11 blood-glucose sensor (Dexcom G6 Sensor) Cindy Use to check blood sugar four times daily . 3 each 0 insulin aspart U-100 (NovoLOG) 100 unit/mL injection Use as directed via insulin pump approx. 100 units daily total. . 30 mL 5 lancets Misc Use to check BG 4 times daily. Dg code E11.65 Use what is covered by insurance. May get 90 day if insurance allows and cheaper for pt. . 200 each 11 vitamin with Ca-Iron-FA 27-1 mg Tab Take 1 (one) tablet by mouth daily . No current facility-administered medications for this visit. Review of Systems: Review of Systems Constitutional: Negative for activity change, appetite change, fatigue and unexpected weight change. Eyes: Negative for photophobia and visual disturbance. Respiratory: Negative for chest tightness and shortness of breath. Cardiovascular: Negative for chest pain, palpitations and leg swelling. Gastrointestinal: Negative for abdominal pain, constipation, diarrhea, nausea and vomiting. Endocrine: Negative for cold intolerance, heat intolerance, polydipsia, polyphagia and polyuria. Genitourinary: Negative for difficulty urinating and frequency. Musculoskeletal: Negative for arthralgias and myalgias. Skin: Negative for rash and wound. Neurological: Negative for dizziness, weakness and numbness. Psychiatric/Behavioral: Negative for confusion and sleep disturbance. The patient is not nervous/anxious. The following portions of the patient's history were reviewed and updated as appropriate: allergies, current medications, past family history, past medical history, past social history, past surgical history and problem list. Objective: BP 126/84 Pulse 87 Wt 90.7 kg (200 lb) BMI 35.43 kg/m Wt Readings from Last 3 Encounters: 07/13/23 90.7 kg (200 lb) 03/11/23 90.7 kg (200 lb) 10/06/22 93.1 kg (205 lb 4.8 oz) Physical Exam: Physical Exam General: alert, appears stated age and cooperative Eyes: conjunctivae/corneas clear. PERRL, EOM's intact. Neck: no adenopathy, supple, symmetrical, trachea midline. Thyroid: No thyromegaly appreciated Lung: clear to auscultation bilaterally Heart: regular rate and rhythm, S1, S2 normal, no murmur, click, rub or gallop Extremities: extremities normal, atraumatic, no cyanosis or edema Feet: Dry skin, Bilateral Feet: warm, good capillary refill, normal PT, normal DP and normal sensory exam. Monofilament exam not assessed, bilateral lower extremities. Neuro: normal without focal findings, mental status, speech normal, alert and oriented x3 and JITENDRA Lab Review 07/06/23 *labs reviewed 07/13/23 Hgb A1c: 6.9% Creat: 0.73; eGFR: 95 AST: 18; ALT: 31 K: 3.9 TSH: 3.01 ; FreeT4: 0.90 03/10/23 Hgb A1c: 7.1% Creat: 0.66 AST: 31; ALT: 21 Tchol: 157; Tri ; HDL: 54 ; LDL: 87 09/29/2022 Hemoglobin A1C 6.4% Creatinine 0.68 GFR 104 TSH 3.33 FT4 1.10 AST 19 ALT 39 05/29/2022 Hemoglobin A1C 6.9% Creatinine 0.71 GFR 98 AST 29 ALT 46 Cholesterol 170 Triglycerides 80 HDL 57 LDL 97 11/30/2021 Hemoglobin A1c 6.8% Creatinine 0.59, estimated GFR 122, K3.9 AST 35, ALT 62 T cholesterol 157, TG 64, HDL 55, LDL 89 Free T4: 0.89 07/30/2021 Hemoglobin A1c 6.7% Creatinine 0.63 GFR 115 AST 17 ALT 34 TSH 2.10 free T4 1.02 04/06/2021 Hemoglobin A1c 6.5% Creatinine 0.67, K3.8 AST 24, ALT 45 T cholesterol 171, TG 100, HDL 47, LDL 104 Microalbumin/creatinine ratio: Below assay TSH 5.48, free T4: 0.89 08/13/2020 Hemoglobin A1c 9.3% Creatinine 0.58 GFR 126 AST 16 ALT 36 K: 3.5, Na: 139 03/23/2020 Hemoglobin A1c 9.4% Creatinine 0.61 GFR 118 AST 21 ALT 32 Cholesterol 175 triglycerides 66 HDL 49 LDL 113 TSH 2.41 T4 1.06 Microalbumin creatinine ratio 6.6 Date: 09/14/19 Hemoglobin A1C 8.6% Creatinine 0.62 [id number] AST 20 ALT 38 06/09/2019 Hemoglobin A1c 8.2% Creatinine 0.8, estimated GFR 126, K3.9 AST 21, ALT 36 T cholesterol 146, TG 50, HDL 57, LDL 79 TSH 2.63, free T4--0.97 CBC: H/H 13.8/32.8, WBC 3.0, platelets 180,000 Microalbumin/creatinine ratio 6.0 03/17/19 HgbA1c 10.4% 11/08/2018 Hemoglobin A1c 9.2% Creatinine 0.53, estimated GFR 140, K3.6 AST 28, ALT 49 T cholesterol 163, TG 68, HDL 58, LDL 91 03/01/2018 Hemoglobin A1c 9.0% Creatinine 0.55, estimated GFR 135, K3.7 Microalbumin/creatinine ratio 11.8 Assessment: Dx: 1. Type 1 diabetes mellitus without complication (HCC) insulin aspart U-100 (NovoLOG) 100 unit/mL injection Comprehensive Metabolic Panel Hemoglobin A1c TSH T4, Free CBC and Differential Microalbumin/Creatinine Ratio, UR Random Lipid Panel Type 1 diabetes, under good control Currently managed with: Insulin Pump - Novolog insulin T slim pump with dexcom CGM Current Hemoglobin A1C= Lab Results Component Value Date HGBA1C 6.9 (H) 07/06/2023 Home blood sugar records: reviewed Dexcom and pump data, scanned to chart Any episodes of hypoglycemia? None often NOTES: DM Complication Review: Retinopathy: Negative Exam within last 12 months: yes Exhibition Designer/Sheep Shearer: Dr. Gooden in [place] Other Ophthalmologic Conditions: None known Nephropathy: Negative Creat 0.73 07/16 Lab Results Component Value Date CREATININE 0.73 07/06/2023 EXTEGFR 95 07/06/2023 EXTEGFRAFAME 115 07/06/2023 Microlbumin/creat ratio: -- 05/2022 Is patient on SIRENA inhibitor or angiotensin II receptor roland? no Peripheral Neuropathy: Negative Denies symptoms associated with neuropathy (numbness and/or tingling) Autonomic Neuropathy: Negative Hypoglycemia unawareness. Senses low BG at 50-60mg/dl. Hyperlipidemia: Negative Currently taking: No lipid lowering agents. LFT's WNL Plan: Encouraged the patient to follow low-fat low-cholesterol diet Hypertension: Negative . Currently taking: Patient on no antihypertensives BP: 126/84 Cardiac: Negative Experiencing chest pain No Experiencing shortness of breath No History of No history of CAD Follows routinely with: Vascular: Negative History of None Feet: 03/11/2023 Follows with Podiatry: No Tack Driller: History of foot ulceration: No History of amputation: No Thyroid: Negative TSH 3.06/2023 Lab Results Component Value Date TSH 3.07/06/2023 Negative Other: Plan: 1. Type 1 diabetes Insulin Pump Basal Rates: 0000: 0.850 0100 1.300 0500 0.800 0900 0.800 1300 1.500 1900 1.200 2300 1.110 Carb Ratios: 0000 5.5 0500 4.0 1100 6.0 1500 5.0 2100 6.0 Sensitivity: 0000 32 2200 45 The above settings were continued. I will review her labs once those are available, and call with any changes to her current regimen if needed. 2. Education: Reviewed ABCs of diabetes management (respective goals in parentheses): A1C (7.0-8.0), blood pressure (<130/80), and cholesterol (LDL <100). 3. Compliance at present is estimated to be good. Efforts to improve compliance (if necessary) will be directed at regular blood sugar monitorin times daily 4. Follow up: 4 months 5. Record blood sugar readings as instructed. Call if BG consistently <70 or >250. [phone] 6. Bring blood sugar meter to follow up appointment. Orders Placed This Encounter Procedures Comprehensive Metabolic Panel Hemoglobin A1c TSH T4, Free CBC and Differential Microalbumin/Creatinine Ratio, UR Random Lipid Panel Electronically Signed by: Jarrett Waite CNP 07/13/23 9:33 AM documented in this encounter [facility] 03-11-2023 Instructions Marion Urias CNP - 03/11/2023 9:06 AM EDT Call the office with Blood sugar readings for dose adjustments to your insulin, if needed. The goal hemoglobin A1C is 7%-8%, closer to 7%, which is an average BG of 150 Please call the office sooner for episodes of hypoglycemia, BG < 70. Please remember to check your blood sugar 4x per day. Bring your blood sugar meter with you to appointments for review/download. It is important for us to prove you are checking your blood sugar, in order for us to renew/prescribe testing supplies. *Get updated labs done prior to your follow up appointment with us. If you do not get updated labs done, that are requested, please consider rescheduling your appointment until those are done * documented in this encounter [facility] 03-11-2023 History of Presen t illness Narrative Images from the original note were not included. Patient ID: Matthew Patton is a 37 y.o. female 1985 Subjective: Matthew Patton presents for follow up of Type 1 diabetes Diagnosed at 16 years old HPI Ms. Patton is a 37-year-old female patient who presents the office today for follow-up of her type 1 diabetes. She is currently utilizing a T-Slim insulin pump and a Dexcom CGM in control IQ, both were downloaded and reviewed today. She denies any significant complaints today and reports has been feeling well. We are waiting for her labs to be faxed from [facility] that were done prior to her visit. Current Outpatient Medications Medication Sig Dispense Refill insulin aspart U-100 (NovoLOG) 100 unit/mL injection Use as directed via insulin pump approx. 100 units daily total. . 30 mL 5 blood sugar diagnostic (glucose blood) strips Use as directed: four times daily. E11.65 . 150 each 11 blood-glucose meter Misc Use to check BG 4 times daily. Dg code E11.65 . 150 each 11 blood-glucose sensor (Dexcom G6 Sensor) Cindy Use to check blood sugar four times daily . 3 each 0 lancets Misc Use to check BG 4 times daily. Dg code E11.65 Use what is covered by insurance. May get 90 day if insurance allows and cheaper for pt. . 200 each 11 vitamin with Ca-Iron-FA 27-1 mg Tab Take 1 (one) tablet by mouth daily . No current facility-administered medications for this visit. Review of Systems: Review of Systems Constitutional: Negative for activity change, appetite change, fatigue and unexpected weight change. Eyes: Negative for photophobia and visual disturbance. Respiratory: Negative for chest tightness and shortness of breath. Cardiovascular: Negative for chest pain, palpitations and leg swelling. Gastrointestinal: Negative for abdominal pain, constipation, diarrhea, nausea and vomiting. Endocrine: Negative for cold intolerance, heat intolerance, polydipsia, polyphagia and polyuria. Genitourinary: Negative for difficulty urinating and frequency. Musculoskeletal: Negative for arthralgias and myalgias. Skin: Negative for rash and wound. Neurological: Negative for dizziness, weakness and numbness. Psychiatric/Behavioral: Negative for confusion and sleep disturbance. The patient is not nervous/anxious. The following portions of the patient's history were reviewed and updated as appropriate: allergies, current medications, past family history, past medical history, past social history, past surgical history and problem list. Objective: BP 117/78 Pulse 89 Ht 5' 3 Wt 90.7 kg (200 lb) BMI 35.43 kg/m Wt Readings from Last 3 Encounters: 03/11/23 90.7 kg (200 lb) 10/06/22 93.1 kg (205 lb 4.8 oz) 06/02/22 91.6 kg (202 lb) Physical Exam: Physical Exam General: alert, appears stated age and cooperative Eyes: conjunctivae/corneas clear. PERRL, EOM's intact. Neck: no adenopathy, supple, symmetrical, trachea midline. Thyroid: No thyromegaly appreciated Lung: clear to auscultation bilaterally Heart: regular rate and rhythm, S1, S2 normal, no murmur, click, rub or gallop Extremities: extremities normal, atraumatic, no cyanosis or edema Feet: Dry skin, Bilateral Feet: warm, good capillary refill, normal PT, normal DP and normal sensory exam. Monofilament exam not assessed, bilateral lower extremities. Neuro: normal without focal findings, mental status, speech normal, alert and oriented x3 and JITENDRA Lab Review 09/29/2022 Hemoglobin A1C 6.4% Creatinine 0.68 GFR 104 TSH 3.33 FT4 1.10 AST 19 ALT 39 05/29/2022 Hemoglobin A1C 6.9% Creatinine 0.71 GFR 98 AST 29 ALT 46 Cholesterol 170 Triglycerides 80 HDL 57 LDL 97 11/30/2021 Hemoglobin A1c 6.8% Creatinine 0.59, estimated GFR 122, K3.9 AST 35, ALT 62 T cholesterol 157, TG 64, HDL 55, LDL 89 Free T4: 0.89 07/30/2021 Hemoglobin A1c 6.7% Creatinine 0.63 GFR 115 AST 17 ALT 34 TSH 2.10 free T4 1.02 04/06/2021 Hemoglobin A1c 6.5% Creatinine 0.67, K3.8 AST 24, ALT 45 T cholesterol 171, TG 100, HDL 47, LDL 104 Microalbumin/creatinine ratio: Below assay TSH 5.48, free T4: 0.89 08/13/2020 Hemoglobin A1c 9.3% Creatinine 0.58 GFR 126 AST 16 ALT 36 K: 3.5, Na: 139 03/23/2020 Hemoglobin A1c 9.4% Creatinine 0.61 GFR 118 AST 21 ALT 32 Cholesterol 175 triglycerides 66 HDL 49 LDL 113 TSH 2.41 T4 1.06 Microalbumin creatinine ratio 6.6 Date: 09/14/19 Hemoglobin A1C 8.6% Creatinine 0.62 [id number] AST 20 ALT 38 06/09/2019 Hemoglobin A1c 8.2% Creatinine 0.8, estimated GFR 126, K3.9 AST 21, ALT 36 T cholesterol 146, TG 50, HDL 57, LDL 79 TSH 2.63, free T4--0.97 CBC: H/H 13.8/32.8, WBC 3.0, platelets 180,000 Microalbumin/creatinine ratio 6.0 03/17/19 HgbA1c 10.4% 11/08/2018 Hemoglobin A1c 9.2% Creatinine 0.53, estimated GFR 140, K3.6 AST 28, ALT 49 T cholesterol 163, TG 68, HDL 58, LDL 91 03/01/2018 Hemoglobin A1c 9.0% Creatinine 0.55, estimated GFR 135, K3.7 Microalbumin/creatinine ratio 11.8 Assessment: Dx: 1. Type 1 diabetes mellitus without complication (HCC) Comprehensive Metabolic Panel Hemoglobin A1c T4, Free TSH 2. Insulin pump titration Type 1 diabetes, under good control Currently managed with: Insulin Pump - Novolog insulin T slim pump with dexcom CGM Current Hemoglobin A1C= Lab Results Component Value Date HGBA1C 6.9 05/29/2022 Home blood sugar records: reviewed Dexcom and pump data, scanned to chart Any episodes of hypoglycemia? None often NOTES: DM Complication Review: Retinopathy: Negative Exam within last 12 months: yes Exhibition Designer/Sheep Shearer: Dr. Gooden in [place] Other Ophthalmologic Conditions: None known Nephropathy: Negative Lab Results Component Value Date CREATININE 0.71 05/29/2022 EXTEGFR 98 05/29/2022 EXTEGFRAFAME 148 11/30/2021 Microlbumin/creat ratio: -- 05/2022 Is patient on SIRENA inhibitor or angiotensin II receptor roland? no Peripheral Neuropathy: Negative Denies symptoms associated with neuropathy (numbness and/or tingling) Autonomic Neuropathy: Negative Hypoglycemia unawareness. Senses low BG at 50-60mg/dl. Hyperlipidemia: Negative Currently taking: No lipid lowering agents. LFT's WNL Plan: Encouraged the patient to follow low-fat low-cholesterol diet Hypertension: Negative . Currently taking: Patient on no antihypertensives BP: 117/78 Cardiac: Negative Experiencing chest pain No Experiencing shortness of breath No History of No history of CAD Follows routinely with: Vascular: Negative History of None Feet: 03/11/2023 Follows with Podiatry: No Tack Driller: History of foot ulceration: No History of amputation: No Thyroid: Negative TSH 3.33 FT4 1.10 09/29/2022 Lab Results Component Value Date TSH 2.10 07/30/2021 Negative Other: Plan: 1. Type 1 diabetes Insulin Pump Basal Rates: 0000: 0.850 0100 1.300 0500 0.800 0900 0.800 1300 1.500 (1.000 as basal set A for when working outside) 1900 1.200 2300 1.110 Carb Ratios: 0000 5.5 0500 4.0 1100 6.0 1500 5.0 2100 6.0 Sensitivity: 0000 32 2200 45 The above changes were made to the patient's current pump settings, to help with post meal hyperglycemia. I will review her labs once those are available, and call with any changes to her current regimen if needed. 2. Education: Reviewed ABCs of diabetes management (respective goals in parentheses): A1C (7.0-8.0), blood pressure (<130/80), and cholesterol (LDL <100). 3. Compliance at present is estimated to be good. Efforts to improve compliance (if necessary) will be directed at regular blood sugar monitorin times daily 4. Follow up: 4 months 5. Record blood sugar readings as instructed. Call if BG consistently <70 or >250. [phone] 6. Bring blood sugar meter to follow up appointment. Orders Placed This Encounter Procedures Comprehensive Metabolic Panel Hemoglobin A1c T4, Free TSH Electronically signed by Marion Urias COLLECTION SUPPORT SPECIALIST-BEAMER HAND 03/11/2311:18 AM documented in this encounter [facility] 06-02-2022 Instructions Marion Urias CNP - 06/02/2022 11:20 AM EDT Call the office with Blood sugar readings in 1 week for dose adjustments to your insulin, if needed. The goal hemoglobin A1C is 7%-8%, closer to 7%, which is an average BG of 150 Please call the office sooner for episodes of hypoglycemia, BG < 70. Please remember to check your blood sugar 4x per day. Bring your blood sugar meter with you to appointments for review/download. It is important for us to prove you are checking your blood sugar, in order for us to renew/prescribe testing supplies. *Get updated labs done prior to your follow up appointment with us. If you do not get updated labs done, that are requested, please consider rescheduling your appointment until those are done * documented in this encounter [facility] 06-02-2022 History of Presen t illness Narrative Images from the original note were not included. Patient ID: Matthew Patton is a 36 y.o. female 1985 Subjective: Matthew Patton presents for follow up of Type 1 diabetes Patient has had diabetes for 18 years, diagnosed at 16 years old HPI Ms. Patton is a 36-year-old female patient who presents the office today for follow-up of her type 1 diabetes. She is currently utilizing a T-Slim insulin pump and a Dexcom CGM in control IQ, both were downloaded and reviewed today. Her HgbA1c is 6.9%. She denies any significant complaints today and reports has been feeling well. Currently managed with: Insulin Pump Current monitoring regimen: SMBG 4 times daily - Dexcom CGM Current Outpatient Medications Medication Sig Dispense Refill insulin aspart U-100 (NovoLOG) 100 unit/mL injection Use as directed via insulin pump approx. 100 units daily total. . 30 mL 5 blood sugar diagnostic (glucose blood) strips Use as directed: four times daily. E11.65 . 150 each 11 blood-glucose meter Misc Use to check BG 4 times daily. Dg code E11.65 . 150 each 11 lancets Misc Use to check BG 4 times daily. Dg code E11.65 Use what is covered by insurance. May get 90 day if insurance allows and cheaper for pt. . 200 each 11 vitamin with Ca-Iron-FA 27-1 mg Tab Take 1 tablet by mouth daily . No current facility-administered medications for this visit. Review of Systems: Review of Systems Constitutional: Negative for activity change, appetite change, fatigue and unexpected weight change. Eyes: Negative for photophobia and visual disturbance. Respiratory: Negative for chest tightness and shortness of breath. Cardiovascular: Negative for chest pain, palpitations and leg swelling. Gastrointestinal: Negative for abdominal pain, constipation, diarrhea, nausea and vomiting. Endocrine: Negative for cold intolerance, heat intolerance, polydipsia, polyphagia and polyuria. Genitourinary: Negative for difficulty urinating and frequency. Musculoskeletal: Negative for arthralgias and myalgias. Skin: Negative for rash and wound. Neurological: Negative for dizziness, weakness and numbness. Psychiatric/Behavioral: Negative for confusion and sleep disturbance. The patient is not nervous/anxious. The following portions of the patient's history were reviewed and updated as appropriate: allergies, current medications, past family history, past medical history, past social history, past surgical history and problem list. Objective: BP 128/82 Pulse 76 Ht 5' 3 Wt 91.6 kg (202 lb) BMI 35.78 kg/m Wt Readings from Last 3 Encounters: 06/02/22 91.6 kg (202 lb) 12/02/21 91.4 kg (201 lb 8 oz) 08/05/21 89 kg (196 lb 4.8 oz) Physical Exam: Physical Exam General: alert, appears stated age and cooperative Eyes: conjunctivae/corneas clear. PERRL, EOM's intact. Neck: no adenopathy, supple, symmetrical, trachea midline. Thyroid: No thyromegaly appreciated Lung: clear to auscultation bilaterally Heart: regular rate and rhythm, S1, S2 normal, no murmur, click, rub or gallop Extremities: extremities normal, atraumatic, no cyanosis or edema Feet: Dry skin, Bilateral Feet: warm, good capillary refill, normal PT, normal DP and normal sensory exam. Monofilament exam not assessed, bilateral lower extremities. Neuro: normal without focal findings, mental status, speech normal, alert and oriented x3 and JITENDRA Lab Review 05/29/2022 Hemoglobin A1C 6.9% Creatinine 0.71 GFR 98 AST 29 ALT 46 Cholesterol 170 Triglycerides 80 HDL 57 LDL 97 11/30/2021 Hemoglobin A1c 6.8% Creatinine 0.59, estimated GFR 122, K3.9 AST 35, ALT 62 T cholesterol 157, TG 64, HDL 55, LDL 89 Free T4: 0.89 07/30/2021 Hemoglobin A1c 6.7% Creatinine 0.63 GFR 115 AST 17 ALT 34 TSH 2.10 free T4 1.02 04/06/2021 Hemoglobin A1c 6.5% Creatinine 0.67, K3.8 AST 24, ALT 45 T cholesterol 171, TG 100, HDL 47, LDL 104 Microalbumin/creatinine ratio: Below assay TSH 5.48, free T4: 0.89 08/13/2020 Hemoglobin A1c 9.3% Creatinine 0.58 GFR 126 AST 16 ALT 36 K: 3.5, Na: 139 03/23/2020 Hemoglobin A1c 9.4% Creatinine 0.61 GFR 118 AST 21 ALT 32 Cholesterol 175 triglycerides 66 HDL 49 LDL 113 TSH 2.41 T4 1.06 Microalbumin creatinine ratio 6.6 Date: 09/14/19 Hemoglobin A1C 8.6% Creatinine 0.62 [id number] AST 20 ALT 38 06/09/2019 Hemoglobin A1c 8.2% Creatinine 0.8, estimated GFR 126, K3.9 AST 21, ALT 36 T cholesterol 146, TG 50, HDL 57, LDL 79 TSH 2.63, free T4--0.97 CBC: H/H 13.8/32.8, WBC 3.0, platelets 180,000 Microalbumin/creatinine ratio 6.0 03/17/19 HgbA1c 10.4% 11/08/2018 Hemoglobin A1c 9.2% Creatinine 0.53, estimated GFR 140, K3.6 AST 28, ALT 49 T cholesterol 163, TG 68, HDL 58, LDL 91 03/01/2018 Hemoglobin A1c 9.0% Creatinine 0.55, estimated GFR 135, K3.7 Microalbumin/creatinine ratio 11.8 Assessment: Dx: 1. Type 1 diabetes mellitus without complication (HCC) Comprehensive Metabolic Panel Hemoglobin A1c T4, Free TSH Type 1 diabetes, under good control Currently managed with: Insulin Pump - Novolog insulin T slim pump with dexcom CGM Current Hemoglobin A1C= 6.9% 05/29/2022 Lab Results Component Value Date HGBA1C 6.9 05/29/2022 Home blood sugar records: reviewed and scanned to chart Any episodes of hypoglycemia? None often NOTES: It appears the patient is having to bolus more often following breakfast and dinner specifically due to hyperglycemia after a meal. DM Complication Review: Retinopathy: Negative Exam within last 12 months: yes Exhibition Designer/Sheep Shearer: Dr. Gooden in [place] Other Ophthalmologic Conditions: None known Nephropathy: Negative Creatinine 0.71 GFR 98 05/29/2022 Lab Results Component Value Date CREATININE 0.71 05/29/2022 EXTEGFR 98 05/29/2022 EXTEGFRAFAME 148 11/30/2021 Microlbumin/creat ratio: -- 05/2022 Is patient on SIRENA inhibitor or angiotensin II receptor roland? no Peripheral Neuropathy: Negative Denies symptoms associated with neuropathy (numbness and/or tingling) Autonomic Neuropathy: Negative Hypoglycemia unawareness. Senses low BG at 60mg/dl. Hyperlipidemia: Negative Currently taking: No lipid lowering agents. LFT's WNL T cholesterol 170, TG 80 , HDL 57 , LDL 97 Plan: Encouraged the patient to follow low-fat low-cholesterol diet Hypertension: Negative . Currently taking: Patient on no antihypertensives BP: 128/82 Cardiac: Negative Experiencing chest pain No Experiencing shortness of breath No History of No history of CAD Follows routinely with: Vascular: Negative History of None Feet: 06/02/2022 Follows with Podiatry: No Tack Driller: History of foot ulceration: No History of amputation: No Thyroid: Negative Lab Results Component Value Date TSH 2.10 07/30/2021 Negative Other: Plan: 1. Type 1 diabetes Insulin Pump Basal Rates: 0000: 0.850 0100 1.300 0500 0.800 0900 0.800 1300 1.500 (1.000 as basal set A for when working outside) 1900 1.200 2300 1.110 Carb Ratios: 0000 6.0 0500 4.0 1100 7.0 1500 5.0 2100 6.0 Sensitivity: 0000 32 2200 45 Based on the patient's pump download, I have adjusted her carb ratio at breakfast and dinner. I have asked her to call the office should she start having any issues with hypoglycemia we can make more changes if needed. 2. Education: Reviewed ABCs of diabetes management (respective goals in parentheses): A1C (7.0-8.0), blood pressure (<130/80), and cholesterol (LDL <100). 3. Compliance at present is estimated to be good. Efforts to improve compliance (if necessary) will be directed at regular blood sugar monitorin times daily 4. Follow up: 4 months 5. Record blood sugar readings as instructed. Call if BG consistently <70 or >250. [phone] 6. Bring blood sugar meter to follow up appointment. Orders Placed This Encounter Procedures Comprehensive Metabolic Panel Hemoglobin A1c T4, Free TSH Electronically signed by Marion JUAREZ 06/02/2211:18 AM documented in this encounter [facility] 12-02-2021 History of Presen t illness Narrative Images from the original note were not included. Patient ID: Matthew Patton is a 36 y.o. female 1985 Subjective: Matthew Patton presents for follow up of Type 1 diabetes Patient has had diabetes for 18 years, diagnosed at 16 years old HPI is a 36-year-old female patient who presents the office today for follow-up of her type 1 diabetes. She is currently utilizing a T-Slim insulin pump and a Dexcom CGM in auto mode, both were downloaded and reviewed today. Her HgbA1c is 6.7%. She denies any significant complaints today and reports has been feeling well. As the season turns she has begun to be very active outside working during the day. Currently managed with: Insulin Pump Current monitoring regimen: SMBG 4 times daily - Dexcom CGM Social History: Weight trend: is stable Current diet: carb controlled, carbohydrate counting, avoiding concentrated sugars Current exercise: aerobics and housecleaning Tobacco/Alcohol Use: None Lives at home with and 3 kids Current Outpatient Medications Medication Sig Dispense Refill insulin aspart U-100 (NovoLOG) 100 unit/mL injection Use as directed via insulin pump approx. 100 units daily total. . 30 mL 5 vitamin with Ca-Iron-FA 27-1 mg Tab Take 1 tablet by mouth daily . blood sugar diagnostic (glucose blood) strips Use as directed: four times daily. E11.65 . 150 each 11 blood-glucose meter Misc Use to check BG 4 times daily. Dg code E11.65 . 150 each 11 lancets Misc Use to check BG 4 times daily. Dg code E11.65 Use what is covered by insurance. May get 90 day if insurance allows and cheaper for pt. . 200 each 11 No current facility-administered medications for this visit. Review of Systems: Review of Systems Constitutional: Negative for activity change, appetite change, fatigue and unexpected weight change. Eyes: Negative for photophobia and visual disturbance. Respiratory: Negative for chest tightness and shortness of breath. Cardiovascular: Negative for chest pain, palpitations and leg swelling. Gastrointestinal: Negative for abdominal pain, constipation, diarrhea, nausea and vomiting. Endocrine: Negative for cold intolerance, heat intolerance, polydipsia, polyphagia and polyuria. Genitourinary: Negative for difficulty urinating and frequency. Musculoskeletal: Negative for arthralgias and myalgias. Skin: Negative for rash and wound. Neurological: Negative for dizziness, weakness and numbness. Psychiatric/Behavioral: Negative for confusion and sleep disturbance. The patient is not nervous/anxious. The following portions of the patient's history were reviewed and updated as appropriate: allergies, current medications, past family history, past medical history, past social history, past surgical history and problem list. Objective: BP 115/75 Pulse 82 Ht 5' 3 Wt 91.4 kg (201 lb 8 oz) BMI 35.69 kg/m Wt Readings from Last 3 Encounters: 12/02/21 91.4 kg (201 lb 8 oz) 08/05/21 89 kg (196 lb 4.8 oz) 04/08/21 86.6 kg (191 lb) Physical Exam: Physical Exam General: alert, appears stated age and cooperative Eyes: conjunctivae/corneas clear. PERRL, EOM's intact. Neck: no adenopathy, supple, symmetrical, trachea midline. Thyroid: No thyromegaly appreciated Lung: clear to auscultation bilaterally Heart: regular rate and rhythm, S1, S2 normal, no murmur, click, rub or gallop Extremities: extremities normal, atraumatic, no cyanosis or edema Feet: Dry skin, Bilateral Feet: warm, good capillary refill, normal PT, normal DP and normal sensory exam. Monofilament exam not assessed, bilateral lower extremities. Neuro: normal without focal findings, mental status, speech normal, alert and oriented x3 and JITENDRA Lab Review 11/30/2021 Hemoglobin A1c 6.8% Creatinine 0.59, estimated GFR 122, K3.9 AST 35, ALT 62 T cholesterol 157, TG 64, HDL 55, LDL 89 Free T4: 0.89 07/30/2021 Hemoglobin A1c 6.7% Creatinine 0.63 GFR 115 AST 17 ALT 34 TSH 2.10 free T4 1.02 04/06/2021 Hemoglobin A1c 6.5% Creatinine 0.67, K3.8 AST 24, ALT 45 T cholesterol 171, TG 100, HDL 47, LDL 104 Microalbumin/creatinine ratio: Below assay TSH 5.48, free T4: 0.89 08/13/2020 Hemoglobin A1c 9.3% Creatinine 0.58 GFR 126 AST 16 ALT 36 K: 3.5, Na: 139 03/23/2020 Hemoglobin A1c 9.4% Creatinine 0.61 GFR 118 AST 21 ALT 32 Cholesterol 175 triglycerides 66 HDL 49 LDL 113 TSH 2.41 T4 1.06 Microalbumin creatinine ratio 6.6 Date: 09/14/19 Hemoglobin A1C 8.6% Creatinine 0.62 [id number] AST 20 ALT 38 06/09/2019 Hemoglobin A1c 8.2% Creatinine 0.8, estimated GFR 126, K3.9 AST 21, ALT 36 T cholesterol 146, TG 50, HDL 57, LDL 79 TSH 2.63, free T4--0.97 CBC: H/H 13.8/32.8, WBC 3.0, platelets 180,000 Microalbumin/creatinine ratio 6.0 03/17/19 HgbA1c 10.4% 11/08/2018 Hemoglobin A1c 9.2% Creatinine 0.53, estimated GFR 140, K3.6 AST 28, ALT 49 T cholesterol 163, TG 68, HDL 58, LDL 91 03/01/2018 Hemoglobin A1c 9.0% Creatinine 0.55, estimated GFR 135, K3.7 Microalbumin/creatinine ratio 11.8 Assessment: Dx: 1. Type 1 diabetes mellitus without complication (HCC) Comprehensive Metabolic Panel Hemoglobin A1c Lipid Panel External Lab Microalbumin/Creatinine Type 1 diabetes, under good control Currently managed with: Insulin Pump - Novolog insulin Current Hemoglobin A1C= Lab Results Component Value Date HGBA1C 6.7 07/30/2021 Home blood sugar records: Any episodes of hypoglycemia? Some more recently as she has been more active NOTES: DM Complication Review: Retinopathy: Negative Exam within last 12 months: yes Exhibition Designer/Sheep Shearer: Dr. Gooden in [place] Other Ophthalmologic Conditions: None known Nephropathy: Negative Lab Results Component Value Date CREATININE 0.63 07/30/2021 EXTEGFR 115 07/30/2021 EXTEGFRAFAME 139 07/30/2021 Microlbumin/creat ratio: 6.6 on 03/23/2020 Is patient on SIRENA inhibitor or angiotensin II receptor roland? no Peripheral Neuropathy: Negative Denies symptoms associated with neuropathy (numbness and/or tingling) Autonomic Neuropathy: Negative Hypoglycemia unawareness. Senses low BG at 60mg/dl. Hyperlipidemia: Negative Currently taking: No lipid lowering agents. LFT's WNL T cholesterol 157, TG 64, HDL 55, LDL 89 Plan: Encouraged the patient to follow low-fat low-cholesterol diet Hypertension: Negative . Currently taking: Patient on no antihypertensives BP: 115/75 Cardiac: Negative Experiencing chest pain No Experiencing shortness of breath No History of No history of CAD Follows routinely with: Vascular: Negative History of None Feet: Follows with Podiatry: No Tack Driller: History of foot ulceration: No History of amputation: No Thyroid: Negative Lab Results Component Value Date TSH 2.10 07/30/2021 Negative Other: Plan: 1. Type 1 diabetes Insulin Pump Basal Rates: 0000: 0.850 0100 1.300 0500 0.800 0900 0.800 1300 1.500 (1.000 as basal set A for when working outside) 1900 1.200 2300 1.110 Carb Ratios: 0000 6.0 0500 5.0 1100 7.0 1500 6.0 2100 6.0 Sensitivity: 0000 32 2200 45 Breakfast I/C ratio adjusted as above, added second basal rate for daytime when working outside. Continue with Control IQ. 2. Education: Reviewed ABCs of diabetes management (respective goals in parentheses): A1C (7.0-8.0), blood pressure (<130/80), and cholesterol (LDL <100). 3. Compliance at present is estimated to be good. Efforts to improve compliance (if necessary) will be directed at regular blood sugar monitorin times daily 4. Follow up: 4 months 5. Record blood sugar readings as instructed. Call if BG consistently <70 or >250. [phone] Patient has been checking blood glucoses 4 times daily for the past 90 days. Patient needs to continue checking blood glucoses 4 times daily. Blood glucose readings are used to adjust medication or insulin doses for meals, monitor dietary compliance, and adjust for high or low blood glucoses by patient on a daily basis. Blood glucose readings are reviewed at office visits for adjustment in medication regimen and assistance with dietary management, and other self-management issues including exercise, etc. Prognosis: Good. Duration of need for diabetes testing equipment: Permanent #150 strips/month prescribed. 6. Bring blood sugar meter to follow up appointment. Orders Placed This Encounter Procedures Comprehensive Metabolic Panel Hemoglobin A1c Lipid Panel External Lab Microalbumin/Creatinine Electronically signed by: Xu Reid PA-C, [facility] 12/03/21 10:13 AM documented in this encounter [facility] 08-05-2021 Instructions Marion Urias CNP - 08/05/2021 11:36 AM EST Call the office with Blood sugar readings for dose adjustments to your insulin, if needed. The goal hemoglobin A1C is 7%-8%, closer to 7%, which is an average BG of 150 Please call the office sooner for episodes of hypoglycemia, BG < 70. Please remember to check your blood sugar 4x per day. Bring your blood sugar meter with you to appointments for review/download. It is important for us to prove you are checking your blood sugar, in order for us to renew/prescribe testing supplies. documented in this encounter [facility] 08-05-2021 History of Presen t illness Narrative Images from the original note were not included. Patient ID: Matthew Patton is a 36 y.o. female 1985 Subjective: Matthew Patton presents for follow up of Type 1 diabetes Patient has had diabetes for 18 years, diagnosed at 16 years old HPI is a 36-year-old female patient who presents the office today for follow-up of her type 1 diabetes. She is currently utilizing a T-Slim insulin pump and a Dexcom CGM in auto mode. Her HgbA1c is 6.7%. She denies any significant complaints today and reports has been feeling well. She does state continued difficulty with losing weight. She has started a new diet in hopes to help. Currently managed with: Insulin Pump Current monitoring regimen: SMBG 4 times daily - Dexcom CGM Social History: Weight trend: is stable Current diet: carb controlled, carbohydrate counting, avoiding concentrated sugars Current exercise: aerobics and housecleaning Tobacco/Alcohol Use: None Lives at home with and 3 kids Current Outpatient Medications Medication Sig Dispense Refill insulin aspart U-100 (NovoLOG) 100 unit/mL injection Use as directed via insulin pump approx. 100 units daily total. . 30 mL 5 vitamin with Ca-Iron-FA 27-1 mg Tab Take 1 tablet by mouth daily . blood sugar diagnostic (glucose blood) strips Use as directed: four times daily. E11.65 . 150 each 11 blood-glucose meter Misc Use to check BG 4 times daily. Dg code E11.65 . 150 each 11 lancets Misc Use to check BG 4 times daily. Dg code E11.65 Use what is covered by insurance. May get 90 day if insurance allows and cheaper for pt. . 200 each 11 No current facility-administered medications for this visit. Review of Systems: Review of Systems Constitutional: Negative for activity change, appetite change, fatigue and unexpected weight change. Eyes: Negative for photophobia and visual disturbance. Respiratory: Negative for chest tightness and shortness of breath. Cardiovascular: Negative for chest pain, palpitations and leg swelling. Gastrointestinal: Negative for abdominal pain, constipation, diarrhea, nausea and vomiting. Endocrine: Negative for cold intolerance, heat intolerance, polydipsia, polyphagia and polyuria. Genitourinary: Negative for difficulty urinating and frequency. Musculoskeletal: Negative for arthralgias and myalgias. Skin: Negative for rash and wound. Neurological: Negative for dizziness, weakness and numbness. Psychiatric/Behavioral: Negative for confusion and sleep disturbance. The patient is not nervous/anxious. The following portions of the patient's history were reviewed and updated as appropriate: allergies, current medications, past family history, past medical history, past social history, past surgical history and problem list. Objective: BP 125/78 Pulse 74 Ht 5' 3 Wt 89 kg (196 lb 4.8 oz) BMI 34.77 kg/m Wt Readings from Last 3 Encounters: 08/05/21 89 kg (196 lb 4.8 oz) 04/08/21 86.6 kg (191 lb) 12/04/20 80.7 kg (178 lb) Physical Exam: Physical Exam General: alert, appears stated age and cooperative Eyes: conjunctivae/corneas clear. PERRL, EOM's intact. Neck: no adenopathy, supple, symmetrical, trachea midline. Thyroid: No thyromegaly appreciated Lung: clear to auscultation bilaterally Heart: regular rate and rhythm, S1, S2 normal, no murmur, click, rub or gallop Extremities: extremities normal, atraumatic, no cyanosis or edema Feet: Dry skin, Bilateral Feet: warm, good capillary refill, normal PT, normal DP and normal sensory exam. Monofilament exam not assessed, bilateral lower extremities. Neuro: normal without focal findings, mental status, speech normal, alert and oriented x3 and JITENDRA Lab Review 07/30/2021 Hemoglobin A1c 6.7% Creatinine 0.63 GFR 115 AST 17 ALT 34 TSH 2.10 free T4 1.02 04/06/2021 Hemoglobin A1c 6.5% Creatinine 0.67, K3.8 AST 24, ALT 45 T cholesterol 171, TG 100, HDL 47, LDL 104 Microalbumin/creatinine ratio: Below assay TSH 5.48, free T4: 0.89 08/13/2020 Hemoglobin A1c 9.3% Creatinine 0.58 GFR 126 AST 16 ALT 36 K: 3.5, Na: 139 03/23/2020 Hemoglobin A1c 9.4% Creatinine 0.61 GFR 118 AST 21 ALT 32 Cholesterol 175 triglycerides 66 HDL 49 LDL 113 TSH 2.41 T4 1.06 Microalbumin creatinine ratio 6.6 Date: 09/14/19 Hemoglobin A1C 8.6% Creatinine 0.62 [id number] AST 20 ALT 38 06/09/2019 Hemoglobin A1c 8.2% Creatinine 0.8, estimated GFR 126, K3.9 AST 21, ALT 36 T cholesterol 146, TG 50, HDL 57, LDL 79 TSH 2.63, free T4--0.97 CBC: H/H 13.8/32.8, WBC 3.0, platelets 180,000 Microalbumin/creatinine ratio 6.0 03/17/19 HgbA1c 10.4% 11/08/2018 Hemoglobin A1c 9.2% Creatinine 0.53, estimated GFR 140, K3.6 AST 28, ALT 49 T cholesterol 163, TG 68, HDL 58, LDL 91 03/01/2018 Hemoglobin A1c 9.0% Creatinine 0.55, estimated GFR 135, K3.7 Microalbumin/creatinine ratio 11.8 Assessment: Dx: 1. Type 1 diabetes mellitus without complication (HCC) Comprehensive Metabolic Panel Hemoglobin A1c Lipid Panel Microalbumin/Creatinine Ratio, UR Random T4, Free TSH Type 1 diabetes, under good control Currently managed with: Insulin Pump - Novolog insulin Current Hemoglobin A1C= 6.7% 07/30/2021 Lab Results Component Value Date HGBA1C 6.7 07/30/2021 Home blood sugar records: Pump unable to be downloaded today, Dexcom information was reviewed Any episodes of hypoglycemia? None often NOTES: DM Complication Review: Retinopathy: Negative Exam within last 12 months: yes Exhibition Designer/Sheep Shearer: Dr. Gooden in [place] Other Ophthalmologic Conditions: None known Nephropathy: Negative Creatinine 0.63 GFR 115 07/30/2021 Lab Results Component Value Date CREATININE 0.63 07/30/2021 EXTEGFR 115 07/30/2021 EXTEGFRAFAME 139 07/30/2021 Microlbumin/creat ratio: 6.6 on 03/23/2020 Is patient on SIRENA inhibitor or angiotensin II receptor roland? no Peripheral Neuropathy: Negative Denies symptoms associated with neuropathy (numbness and/or tingling) Autonomic Neuropathy: Negative Hypoglycemia unawareness. Senses low BG at 60mg/dl. Hyperlipidemia: Negative Currently taking: No lipid lowering agents. LFT's WNL T cholesterol 171, TG 100, HDL 47, LDL 104 Plan: Encouraged the patient to follow low-fat low-cholesterol diet Lab Results Component Value Date AST 17 07/30/2021 ALT 90 07/30/2021 Lab Results Component Value Date EXTCHOL 146 06/09/2019 EXTTRIG 50 06/09/2019 EXTHDL 57 06/09/2019 EXTLDLCALC 79 06/09/2019 Hypertension: Negative . Currently taking: Patient on no antihypertensives BP: 125/78 Cardiac: Negative Experiencing chest pain No Experiencing shortness of breath No History of No history of CAD Follows routinely with: Vascular: Negative History of None Feet: 08/05/2021 Follows with Podiatry: No Tack Driller: History of foot ulceration: No History of amputation: No Thyroid: Negative Lab Results Component Value Date TSH 2.10 07/30/2021 Negative Other: Plan: 1. Type 1 diabetes Insulin Pump Basal Rates: 0000: 0.850 0100 1.300 0500 0.800 0900 0.800 1300 1.500 1900 1.200 2300 1.110 Carb Ratios: 0000 6.0 0500 5.5 1100 7.0 1500 6.0 2100 6.0 Sensitivity: 0000 32 2200 45 No changes made to the patient's current pump settings. Continue with Control IQ. We discussed that based on her height/weight and current activity level she should try to shoot for eating about 1500 lucy/day. It is good to avoid excessive carbohydrate, and stick to mostly fruits vegetables and protein, whether that is from meat or other sources such as beans etc. I also encouraged her to increase her activity to get more cardiovascular exercise, currently she is just using an exercise ball. 2. Education: Reviewed ABCs of diabetes management (respective goals in parentheses): A1C (7.0-8.0), blood pressure (<130/80), and cholesterol (LDL <100). 3. Compliance at present is estimated to be good. Efforts to improve compliance (if necessary) will be directed at regular blood sugar monitorin times daily 4. Follow up: 4 months 5. Record blood sugar readings as instructed. Call if BG consistently <70 or >250. [phone] Patient has been checking blood glucoses 4 times daily for the past 90 days. Patient needs to continue checking blood glucoses 4 times daily. Blood glucose readings are used to adjust medication or insulin doses for meals, monitor dietary compliance, and adjust for high or low blood glucoses by patient on a daily basis. Blood glucose readings are reviewed at office visits for adjustment in medication regimen and assistance with dietary management, and other self-management issues including exercise, etc. Prognosis: Good. Duration of need for diabetes testing equipment: Permanent #150 strips/month prescribed. 6. Bring blood sugar meter to follow up appointment. Orders Placed This Encounter Procedures Comprehensive Metabolic Panel Hemoglobin A1c Lipid Panel Microalbumin/Creatinine Ratio, UR Random T4, Free TSH Electronically signed by Marion JUAREZ 08/05/2111:34 AM documented in this encounter [facility] 04-08-2021 History of Presen t illness Narrative Images from the original note were not included. Patient ID: Matthew Patton is a 35 y.o. female 1985 Subjective: Matthew Patton presents for follow up of Type 1 diabetes Patient has had diabetes for 18 years, diagnosed at 16 years old HPI is a 35-year-old female patient who presents the office today for follow-up of her type 1 diabetes. She is currently utilizing a T-Slim insulin pump and a Dexcom CGM in auto mode. Her HgbA1c has noticeably improved utilizing this new pump feature. It is now 6.5%. She does complain of some low BG especially while active in the warmer months. Currently managed with: Insulin Pump Current monitoring regimen: SMBG 4 times daily - Dexcom CGM Social History: Weight trend: is stable Current diet: carb controlled, carbohydrate counting, avoiding concentrated sugars Current exercise: aerobics and housecleaning Tobacco/Alcohol Use: None Lives at home with and 3 kids Current Outpatient Medications Medication Sig Dispense Refill insulin aspart U-100 (NovoLOG) 100 unit/mL injection Use as directed via insulin pump approx. 100 units daily total. . 30 mL 5 blood sugar diagnostic (glucose blood) strips Use as directed: four times daily. E11.65 . 150 each 11 blood-glucose meter Misc Use to check BG 4 times daily. Dg code E11.65 . 150 each 11 lancets Misc Use to check BG 4 times daily. Dg code E11.65 Use what is covered by insurance. May get 90 day if insurance allows and cheaper for pt. . 200 each 11 vitamin with Ca-Iron-FA 27-1 mg Tab Take 1 tablet by mouth daily . No current facility-administered medications for this visit. Review of Systems: Review of Systems Constitutional: Negative for activity change, appetite change, fatigue and unexpected weight change. Eyes: Negative for photophobia and visual disturbance. Respiratory: Negative for chest tightness and shortness of breath. Cardiovascular: Negative for chest pain, palpitations and leg swelling. Gastrointestinal: Negative for abdominal pain, constipation, diarrhea, nausea and vomiting. Endocrine: Negative for cold intolerance, heat intolerance, polydipsia, polyphagia and polyuria. Genitourinary: Negative for difficulty urinating and frequency. Musculoskeletal: Negative for arthralgias and myalgias. Skin: Negative for rash and wound. Neurological: Negative for dizziness, weakness and numbness. Psychiatric/Behavioral: Negative for confusion and sleep disturbance. The patient is not nervous/anxious. The following portions of the patient's history were reviewed and updated as appropriate: allergies, current medications, past family history, past medical history, past social history, past surgical history and problem list. Objective: BP 127/80 Pulse 77 Ht 5' 3 Wt 86.6 kg (191 lb) BMI 33.83 kg/m Wt Readings from Last 3 Encounters: 04/08/21 86.6 kg (191 lb) 12/04/20 80.7 kg (178 lb) 09/05/20 74.8 kg (165 lb) Physical Exam: Physical Exam General: alert, appears stated age and cooperative Eyes: conjunctivae/corneas clear. PERRL, EOM's intact. Neck: no adenopathy, supple, symmetrical, trachea midline. Thyroid: No thyromegaly appreciated Lung: clear to auscultation bilaterally Heart: regular rate and rhythm, S1, S2 normal, no murmur, click, rub or gallop Extremities: extremities normal, atraumatic, no cyanosis or edema Feet: Dry skin, Bilateral Feet: warm, good capillary refill, normal PT, normal DP and normal sensory exam. Monofilament exam not assessed, bilateral lower extremities. Neuro: normal without focal findings, mental status, speech normal, alert and oriented x3 and JITENDRA Lab Review 04/06/2021 Hemoglobin A1c 6.5% Creatinine 0.67, K3.8 AST 24, ALT 45 T cholesterol 171, TG 100, HDL 47, LDL 104 Microalbumin/creatinine ratio: Below assay TSH 5.48, free T4: 0.89 08/13/2020 Hemoglobin A1c 9.3% Creatinine 0.58 GFR 126 AST 16 ALT 36 K: 3.5, Na: 139 03/23/2020 Hemoglobin A1c 9.4% Creatinine 0.61 GFR 118 AST 21 ALT 32 Cholesterol 175 triglycerides 66 HDL 49 LDL 113 TSH 2.41 T4 1.06 Microalbumin creatinine ratio 6.6 Date: 09/14/19 Hemoglobin A1C 8.6% Creatinine 0.62 [id number] AST 20 ALT 38 06/09/2019 Hemoglobin A1c 8.2% Creatinine 0.8, estimated GFR 126, K3.9 AST 21, ALT 36 T cholesterol 146, TG 50, HDL 57, LDL 79 TSH 2.63, free T4--0.97 CBC: H/H 13.8/32.8, WBC 3.0, platelets 180,000 Microalbumin/creatinine ratio 6.0 03/17/19 HgbA1c 10.4% 11/08/2018 Hemoglobin A1c 9.2% Creatinine 0.53, estimated GFR 140, K3.6 AST 28, ALT 49 T cholesterol 163, TG 68, HDL 58, LDL 91 03/01/2018 Hemoglobin A1c 9.0% Creatinine 0.55, estimated GFR 135, K3.7 Microalbumin/creatinine ratio 11.8 Assessment: Dx: 1. Type 1 diabetes mellitus without complication (HCC) Comprehensive Metabolic Panel Hemoglobin A1c 2. Elevated TSH TSH T4, Free T4, Free TSH Type 1 diabetes, under good control Currently managed with: Insulin Pump - Novolog insulin Current Hemoglobin A1C= Lab Results Component Value Date HGBA1C 8.6 09/14/2019 Home blood sugar records: Pump and CGM unable to be downloaded today Any episodes of hypoglycemia? Yes - having more frequent low BG's when active. She is utilizing the activity function of her t:slim pump, but states this is not always preventing lows. NOTES: DM Complication Review: Retinopathy: Negative Exam within last 12 months: yes Exhibition Designer/Sheep Shearer: Dr. Gooden in [place] Other Ophthalmologic Conditions: None known Nephropathy: Negative Lab Results Component Value Date CREATININE 0.62 09/14/2019 EXTEGFR 116 09/14/2019 EXTEGFRAFAME 140 09/14/2019 Microlbumin/creat ratio: 6.6 on 03/23/2020 Is patient on SIRENA inhibitor or angiotensin II receptor roland? no Peripheral Neuropathy: Negative Denies symptoms associated with neuropathy (numbness and/or tingling) Autonomic Neuropathy: Negative Hypoglycemia unawareness. Senses low BG at 60mg/dl. Hyperlipidemia: Negative Currently taking: No lipid lowering agents. LFT's WNL 03/2021: T cholesterol 171, TG 100, HDL 47, LDL 104 Plan: Encouraged the patient to follow low-fat low-cholesterol diet Lab Results Component Value Date AST 20 09/14/2019 ALT 38 09/14/2019 Lab Results Component Value Date EXTCHOL 146 06/09/2019 EXTTRIG 50 06/09/2019 EXTHDL 57 06/09/2019 EXTLDLCALC 79 06/09/2019 Hypertension: Negative . Currently taking: Patient on no antihypertensives BP: 127/80 Cardiac: Negative Experiencing chest pain No Experiencing shortness of breath No History of No history of CAD Follows routinely with: Vascular: Negative History of None Feet: Follows with Podiatry: No Tack Driller: History of foot ulceration: No History of amputation: No Thyroid: Negative Lab Results Component Value Date TSH 2.63 06/09/2019 Negative Other: Current Pump Settings: Basal Rates: 0000: 0.850 0100 1.300 0500 0.800 0900 0.800 1300 1.500 1900 1.200 2300 1.110 Carb Ratios: 0000 6.0 0500 5.5 1100 7.0 1500 6.0 2100 6.0 Sensitivity: 0000 32 2200 45 Plan: 1. Type 1 diabetes Insulin Pump Basal Rates: 0000: 0.850 0100 1.300 0500 0.800 0900 0.800 1300 1.500 1900 1.200 2300 1.110 Carb Ratios: 0000 6.0 0500 5.5 1100 7.0 1500 6.0 2100 6.0 Sensitivity: 0000 32 2200 45 No changes made to the patient's current pump settings. Continue with Control IQ. Discussed eating free carbohydrates prior to physical activity to stabilize BG and prevent hypoglycemia. She should continue to utilize the temporary target underactivity function as well. 2. Education: Reviewed ABCs of diabetes management (respective goals in parentheses): A1C (7.0-8.0), blood pressure (<130/80), and cholesterol (LDL <100). 3. Compliance at present is estimated to be fair. Efforts to improve compliance (if necessary) will be directed at regular blood sugar monitorin times daily, increasing mealtime bolus. 4. Follow up: 4 months 5. Record blood sugar readings as instructed. Call if BG consistently <70 or >250. [phone] Patient has been checking blood glucoses 4 times daily for the past 90 days. Patient needs to continue checking blood glucoses 4 times daily. Blood glucose readings are used to adjust medication or insulin doses for meals, monitor dietary compliance, and adjust for high or low blood glucoses by patient on a daily basis. Blood glucose readings are reviewed at office visits for adjustment in medication regimen and assistance with dietary management, and other self-management issues including exercise, etc. Prognosis: Good. Duration of need for diabetes testing equipment: Permanent #150 strips/month prescribed. 6. Bring blood sugar meter to follow up appointment. Orders Placed This Encounter Procedures TSH T4, Free Comprehensive Metabolic Panel Hemoglobin A1c T4, Free TSH Electronically signed by: Xu Reid PA-C, [facility] 04/08/21 4:28 PM documented in this encounter [facility] Type 1 diabetes mellitus without complication (HCC)- Primary Type I (juvenile type) diabetes mellitus without mention of complication, not stated as uncontrolled [facility] Diagnosis Type 1 diabetes mellitus without complication (HCC)- Primary Type I (juvenile type) diabetes mellitus without mention of complication, not stated as uncontrolled [facility] Diagnosis Type 1 diabetes mellitus without complication (HCC)- Primary Type I (juvenile type) diabetes mellitus without mention of complication, not stated as uncontrolled [facility] Diagnosis Type 1 diabetes mellitus without complication (HCC)- Primary Type I (juvenile type) diabetes mellitus without mention of complication, not stated as uncontrolled [facility] Diagnosis Type 1 diabetes mellitus without complication (HCC)- Primary Type I (juvenile type) diabetes mellitus without mention of complication, not stated as uncontrolled Insulin pump titration Fitting and adjustment of insulin pump [facility] Diagnosis Type 1 diabetes mellitus without complication (HCC) Type I (juvenile type) diabetes mellitus without mention of complication, not stated as uncontrolled documented in this encounter [facility] Summary Purpose Family History No Family History Records FoundNo Family History Records FoundNo Family History Records FoundNo Family History Records Found Advance Directives No Advanced Directives Records FoundDocuments on File Type Date Recorded 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 female 1985 Subjective: Matthew Patton presents for initial consultation for evaluation and management of Type 1 diabetes Patient has had diabetes for 18 years, diagnosed at 16 years old HPI Patient is a 33-year-old female non-smoker with history of type 1 diabetes mellitus x 16 years who presents for initial visit on referral from ALBERTO Singh, endocrinology [facility]. Patient has no other medical history, and takes no medications other than insulin. She has no complications of her diabetes to date. She is currently managed with a Medtronic Paradigm pump. She has been on pump therapy since she was 17 years old. Patient is a -2-0-3, she states her diabetes did complicate her pregnancies. 2 of her pregnancies were births at 33 weeks and 36 weeks requiring for size of fetus. She denies any other history of hospitalizations or surgery Patient was last seen by ALBERTO in 04/2018 at which time her hemoglobin A1c was 9.0% and some minor changes were made to her pump settings. Subsequent A1c's showed 9.2% in 10/2018, and 10.4% today in the office. Patient's pump was downloaded today and reviewed. Patient does check 4 times daily. She states her biggest challenge is remembering/taking the time to bolus for her meals and high blood sugars during the day. She is home with her 3 small children of 6, 3, 1 years old all day and does get distracted frequently. She feels her basal rates and insulin/carb ratios are appropriate when utilized correctly. She follows a generally healthy diet, and is comfortable with carbohydrate counting. Currently managed with: Insulin Pump Current monitoring regimen: SMBG 4 times daily Current Pump Settings: Basal Rates: 0000: 0.775 0100 1.200 0800 0.750 1500 1.400 1900 1.100 2300 1.000 Carb Ratios; 0000 5.0 1100 8.0 1500 8.0 2100 6.0 Sensitivity: 0000 35 Social History: Weight trend: is stable Current diet: carb controlled, carbohydrate counting, avoiding concentrated sugars Current exercise: aerobics and housecleaning Tobacco/Alcohol Use: None Lives at home with and 3 kids, no occupation Current Outpatient Medications Medication Sig Dispense Refill insulin aspart U-100 (NovoLOG) 100 unit/mL injection Inject under the skin 3 (three) times a day before meals . vitamin with Ca-Iron-FA 27-1 mg Tab Take 1 tablet by mouth daily . No current facility-administered medications for this visit. Review of Systems: Review of Systems Constitutional: Negative for activity change, appetite change, fatigue and unexpected weight change. Eyes: Negative for photophobia and visual disturbance. Respiratory: Negative for chest tightness and shortness of breath. Cardiovascular: Negative for chest pain, palpitations and leg swelling. Gastrointestinal: Negative for abdominal pain, constipation, diarrhea, nausea and vomiting. Endocrine: Negative for cold intolerance, heat intolerance, polydipsia, polyphagia and polyuria. Genitourinary: Negative for difficulty urinating and frequency. Musculoskeletal: Negative for arthralgias and myalgias. Skin: Negative for rash and wound. Neurological: Negative for dizziness, weakness and numbness. Psychiatric/Behavioral: Negative for confusion and sleep disturbance. The patient is not nervous/anxious. The following portions of the patient's history were reviewed and updated as appropriate: allergies, current medications, past family history, past medical history, past social history, past surgicalhistory and problem list. Objective: BP 120/79 Pulse 76 Ht 5' 4 Wt 72.7 kg (160 lb 3.2 oz) BMI 27.50 kg/m Wt Readings from Last 3 Encounters: 03/17/19 72.7 kg (160 lb 3.2 oz) Physical Exam: Physical Exam General: alert, appears stated age and cooperative Eyes: conjunctivae/corneas clear. PERRL, EOM's intact. Neck: no adenopathy, supple, symmetrical, trachea midline. Thyroid: No thyromegaly appreciated Lung: clear to auscultation bilaterally Heart: regular rate and rhythm, S1, S2 normal, no murmur, click, rub or gallop Extremities: extremities normal, atraumatic, no cyanosis or edema Feet: Dry skin, Bilateral Feet: warm, good capillary refill, normal PT, normal DP and normal sensory exam. Monofilament exam not assessed, bilateral lower extremities. Neuro: normal without focal findings, mental status, speech normal, alert and oriented x3 and JITENDRA Lab Review Date: 03/17/19 HgbA1c 10.4% 11/08/2018 Hemoglobin A1c 9.2% Creatinine 0.53, estimated GFR 140, K3.6 AST 28, ALT 49 T cholesterol 163, TG 68, HDL 58, LDL 91 03/01/2018 Hemoglobin A1c 9.0% Creatinine 0.55, estimated GFR 135, K3.7 Microalbumin/creatinine ratio 11.8 Assessment: Dx: SNOMED CT(R) 1. Controlled diabetes mellitus type 1 without complications (HCC) TYPE 1 DIABETES MELLITUS Ambulatory referral to Endocrinology Hemoglobin A1c Comprehensive Metabolic Panel Lipid Panel T4, Free TSH External Lab Microalbumin/Creatinine CBC and Differential 2. Uncontrolled type 1 diabetes mellitus with hyperglycemia (HCC) TYPE 1 DIABETES MELLITUS UNCONTROLLED POC Hemoglobin A1C Hemoglobin A1c Comprehensive Metabolic Panel Lipid Panel T4, Free TSH External Lab Microalbumin/Creatinine CBC and Differential Type 1 diabetes, under fair control Currently managed with: Insulin Pump Current Hemoglobin A1C= 9.2% on 11/08/18 Home blood sugar records: Fasting B-378 Pre-lunch B->400 Pre-supper B->400 Bedtime B->400 Any episodes of hypoglycemia? yes - rarely, usually during the night if she is up and about or takes a correction bolus in the evening. NOTES: She is struggling to remember/find time to bolus for her meals and for correction boluses. DM Complication Review: Retinopathy: Negative Exam within last 12 months: yes Date: 08/2018 Exhibition Designer/Sheep Shearer: Dr. Gooden in [place] Other Ophthalmologic Conditions: None known Nephropathy: Negative Creat: 0.53, eGFR 140 No results found for: CREATININE, EXTEGFR, EXTEGFRAFAME Microlbumin/creat ratio: 11.8 on 03/01/18 No results found for: EXTMICROALBC Is patient on SIRENA inhibitor or angiotensin II receptor roland? no Peripheral Neuropathy: Negative Denies symptoms associated with neuropathy (numbness and/or tingling) Autonomic Neuropathy: Negative Hypoglycemia unawareness. Senses low BG at 60mg/dl. Hyperlipidemia: Negative Currently taking: No lipid lowering agents. LFT's WNL No results found for: AST, ALT No results found for: EXTCHOL, EXTTRIG, EXTHDL, EXTLDLCALC Hypertension: Negative . Currently taking: Patient on no antihypertensives BP: 120/79 Cardiac: Negative Experiencing chest pain No . Experiencing shortness of breath No History of No history of CAD Follows routinely with: Vascular: Negative History of None Feet: Last foot exam: 03/17/19 Follows with Podiatry: No Tack Driller: History of foot ulceration: No History of amputation: No Thyroid: No results found for: TSH, [id number], [id number], THYROIDAB Negative Other: Plan: 1. Type 1 diabetes Insulin Pump - no changes Basal Rates: 0000: 0.775 0100 1.200 0800 0.750 1500 1.400 1900 1.100 2300 1.000 Carb Ratios; 0000 5.0 1100 8.0 1500 8.0 2100 6.0 Sensitivity: 0000 35 Had long discussion with patient along side Dr. Medeiros on the importance of bolusing for her meals and episodes of hyperglycemia. We offered a suggestion for when she is short on time to use that bolus doses for her meals as they are mostly consistent. We instructed her to take 4 units with breakfast, 5 units with lunch, and 7 units with dinner if she does not have the time to fully carbohydrate count. On pump download and review, patient's basal rates and insulin/carb ratios appear to be appropriate for both her weight and blood sugar response. She rarely has episodes of hypoglycemia. We will obtain annual labs before next appointment in 3 months. 2. Education: Reviewed ABCs of diabetes management (respective goals in parentheses): A1C (7.0-8.0), blood pressure (<130/80), and cholesterol (LDL <100). 3. Compliance at present is estimated to be fair. Efforts to improve compliance (if necessary) willbe directed at regular blood sugar monitorin times daily, increasing mealtime bolus. 4. Follow up: 3 months 5. Record blood sugar readings as instructed. Call if BG consistently <70 or >250. [phone] Patient has been checking blood glucoses 4 times daily for the past 90 days. Patient needs to continue checking blood glucoses 4 times daily. Blood glucose readings are used to adjust medication or insulin doses for meals, monitor dietary compliance, and adjust for high or low blood glucoses by patient on a daily basis. Blood glucose readings are reviewed at office visits for adjustment in medication regimen and assistance with dietary management, and other self- management issues including exercise, etc. Prognosis: Good. Duration of need for diabetes testing equipment: Permanent #150 strips/month prescribed. 6. Bring blood sugar meter to follow up appointment. Orders Placed This Encounter Procedures Hemoglobin A1c Comprehensive Metabolic Panel Lipid Panel T4, Free TSH External Lab Microalbumin/Creatinine CBC and Differential POC Hemoglobin A1C documented in this encounter* Marion Urias, [facility] - 09/21/2019 11:52 AM EST Patient ID: Matthew Patton is a 34 y.o. female 1985 Subjective: Matthew Patton presents for follow up of Type 1 diabetes Patient has had diabetes for 18 years, diagnosed at 16 years old HPI is a 34-year-old female patient who presents the office today for follow-up of her type1 diabetes. Patient has been feeling quite well and denies any complaints today. She reports noticing high blood sugar at various times throughout the day. Her most recent hemoglobin A1c was 8.6% which is increased from her previous 8.2% at her last visit. Patient is managed with an insulin pump with NovoLog insulin. Currently managed with: Insulin Pump Current monitoring regimen: SMBG 4 times daily - Dexcom CGM Social History: Weight trend: is stable Current diet: carb controlled, carbohydrate counting, avoiding concentrated sugars Current exercise: aerobics and housecleaning Tobacco/Alcohol Use: None Lives at home with and 3 kids, no occupation Current Outpatient Medications Medication Sig Dispense Refill insulin aspart U-100 (NovoLOG) 100 unit/mL injection Inject under the skin 3 (three) times a day before meals . vitamin with Ca-Iron-FA 27-1 mg Tab Take 1 tablet by mouth daily . No current facility-administered medications for this visit. Review of Systems: Review of Systems Constitutional: Negative for activity change, appetite change, fatigue and unexpected weight change. Eyes: Negative for photophobia and visual disturbance. Respiratory: Negative for chest tightness and shortness of breath. Cardiovascular: Negative for chest pain, palpitations and leg swelling. Gastrointestinal: Negative for abdominal pain, constipation, diarrhea, nausea and vomiting. Endocrine: Negative for cold intolerance, heat intolerance, polydipsia, polyphagia and polyuria. Genitourinary: Negative for difficulty urinating and frequency. Musculoskeletal: Negative for arthralgias and myalgias. Skin: Negative for rash and wound. Neurological: Negative for dizziness, weakness and numbness. Psychiatric/Behavioral: Negative for confusion and sleep disturbance. The patient is not nervous/anxious. The following portions of the patient's history were reviewed and updated as appropriate: allergies, current medications, past family history, past medical history, past social history, past surgicalhistory and problem list. Objective: BP 123/72 Pulse 85 Ht 5' 3.96 Wt 78.9 kg (174 lb) BMI 29.90 kg/m Wt Readings from Last 3 Encounters: 09/21/19 78.9 kg (174 lb) 06/20/19 75.1 kg (165 lb 8 oz) 03/17/19 72.7 kg (160 lb 3.2 oz) Physical Exam: Physical Exam General: alert, appears stated age and cooperative Eyes: conjunctivae/corneas clear. PERRL, EOM's intact. Neck: no adenopathy, supple, symmetrical, trachea midline. Thyroid: No thyromegaly appreciated Lung: clear to auscultation bilaterally Heart: regular rate and rhythm, S1, S2 normal, no murmur, click, rub or gallop Extremities: extremities normal, atraumatic, no cyanosis or edema Feet: Dry skin, Bilateral Feet: warm, good capillary refill, normal PT, normal DP and normal sensory exam. Monofilament exam not assessed, bilateral lower extremities. Neuro: normal without focal findings, mental status, speech normal, alert and oriented x3 and JITENDRA Lab Review Date: 09/14/19 Hemoglobin A1C 8.6% Creatinine 0.62 [id number] AST 20 ALT 38 06/09/2019 Hemoglobin A1c 8.2% Creatinine 0.8, estimated GFR 126, K3.9 AST 21, ALT 36 T cholesterol 146, TG 50, HDL 57, LDL 79 TSH 2.63, free T4--0.97 CBC: H/H 13.8/32.8, WBC 3.0, platelets 180,000 Microalbumin/creatinine ratio 6.0 03/17/19 HgbA1c 10.4% 11/08/2018 Hemoglobin A1c 9.2% Creatinine 0.53, estimated GFR 140, K3.6 AST 28, ALT 49 T cholesterol 163, TG 68, HDL 58, LDL 91 03/01/2018 Hemoglobin A1c 9.0% Creatinine 0.55, estimated GFR 135, K3.7 Microalbumin/creatinine ratio 11.8 Assessment: Dx: 1. Uncontrolled type 1 diabetes mellitus with hyperglycemia (HCC) Hemoglobin A1c External Lab Microalbumin/Creatinine Comprehensive Metabolic Panel Lipid Panel T4, Free TSH Type 1 diabetes, under fair control Currently managed with: Insulin Pump Novolog insulin Current Hemoglobin A1C= 8.6% 09/14/19 Lab Results Component Value Date HGBA1C 8.6 09/14/2019 Home blood sugar records: Pump downloaded and reviewed in addition Dexcom data Any episodes of hypoglycemia? evening. NOTES: DM Complication Review: Retinopathy: Negative Exam within last 12 months: yes Date: 08/2018, due for an appointment in November for recheck Exhibition Designer/Sheep Shearer: Dr. Gooden in [place] Other Ophthalmologic Conditions: None known Nephropathy: Negative Creatinine 0.62 GFR 116 on 09/14/2019 Lab Results Component Value Date CREATININE 0.62 09/14/2019 EXTEGFR 116 09/14/2019 EXTEGFRAFAME 140 09/14/2019 Microlbumin/creat ratio: 11.8 on 03/01/18 No results found for: EXTMICROALBC Is patient on SIRENA inhibitor or angiotensin II receptor roland? no Peripheral Neuropathy: Negative Denies symptoms associated with neuropathy (numbness and/or tingling) Autonomic Neuropathy: Negative Hypoglycemia unawareness. Senses low BG at 60mg/dl. Hyperlipidemia: Negative Currently taking: No lipid lowering agents. LFT's WNL Lab Results Component Value Date AST 20 09/14/2019 ALT 38 09/14/2019 Lab Results Component Value Date EXTCHOL 146 06/09/2019 EXTTRIG 50 06/09/2019 EXTHDL 57 06/09/2019 EXTLDLCALC 79 06/09/2019 Hypertension: Negative . Currently taking: Patient on no antihypertensives BP: 123/72 Cardiac: Negative Experiencing chest pain No Experiencing shortness of breath No History of No history of CAD Follows routinely with: Vascular: Negative History of None Feet: Last foot exam: 09/23/19 Follows with Podiatry: No Tack Driller: History of foot ulceration: No History of amputation: No Thyroid: Negative TSH 2.63 06/09/19 Lab Results Component Value Date TSH 2.63 06/09/2019 Negative Other: Current Pump Settings: Basal Rates: 0000: 0.775 0100 1.200 0800 0.750 1300 1.500 1900 1.200 2300 1.100 Carb Ratios: 0000 8.5 1100 8.0 1500 8.0 2100 6.0 Sensitivity: 0000 32 2200 35 Plan: 1. Type 1 diabetes Insulin Pump - Changes in BOLD Basal Rates: 0000: 0.825 0100 1.250 0800 0.750 1300 1.500 1900 1.200 2300 1.100 Carb Ratios: 0000 8.0 1100 7.0 1500 7.0 2100 6.0 Sensitivity: 0000 32 2200 35 The above changes were made to the patient's current pump settings. She was asked to call our office in the next 1 or so weeks if she notices persistent high blood sugar upon awakening in the morning, in addition to elevated blood sugar throughout the day. She was told she could also come in and have her pump downloaded and we could review that as well. 2. Education: Reviewed ABCs of diabetes management (respective goals in parentheses): A1C (7.0-8.0), blood pressure (<130/80), and cholesterol (LDL <100). 3. Compliance at present is estimated to be fair. Efforts to improve compliance (if necessary) willbe directed at regular blood sugar monitorin times daily, increasing mealtime bolus. 4. Follow up: 3 months 5. Record blood sugar readings as instructed. Call if BG consistently <70 or >250. [phone] Patient has been checking blood glucoses 4 times daily for the past 90 days. Patient needs to continue checking blood glucoses 4 times daily. Blood glucose readings are used to adjust medication or insulin doses for meals, monitor dietary compliance, and adjust for high or low blood glucoses by patient on a daily basis. Blood glucose readings are reviewed at office visits for adjustment in medication regimen and assistance with dietary management, and other self- management issues including exercise, etc. Prognosis: Good. Duration of need for diabetes testing equipment: Permanent #150 strips/month prescribed. 6. Bring blood sugar meter to follow up appointment. Orders Placed This Encounter Procedures Hemoglobin A1c External Lab Microalbumin/Creatinine Comprehensive Metabolic Panel Lipid Panel T4, Free TSH Electronically signed by Marion JUAREZ 09/23/2011:04 PM documented in this encounter* Marion Urias CNP - 10/07/2019 11:45 AM EST The patient was called to make the below adjustments to her insulin pump settings. Basal Rates: 0000: 0.850 0100 1.30 0800 0.750 1300 1.500 1900 1.200 2300 1.100 Carb Ratios: 0000 7.0 1100 6.0 1500 6.0 2100 6.0 Sensitivity: 0000 32 2200 35 documented in this encounter* Marion Urias CNP - 03/26/2020 10:42 AM EDT Patient ID: Matthew Patton is a 34 y.o. female 1985 Subjective: Matthew Patton presents for follow up of Type 1 diabetes Patient has had diabetes for 18 years, diagnosed at 16 years old HPI is a 34-year-old female patient who presents the office today for follow-up of her type1 diabetes. Patient has been feeling quite well and denies any complaints today. She reports noticing high blood sugar at various times throughout the day. Her most recent hemoglobin A1c was 9.4%. Patient is managed with an insulin pump with NovoLog insulin. The patient uses a Dexcom sensor, and ischecking her blood sugar quite often. She does however have an issue with bolusing on her insulin pump at meals. She denies any complications of her diabetes. Currently managed with: Insulin Pump Current monitoring regimen: SMBG 4 times daily - Dexcom CGM Social History: Weight trend: is stable Current diet: carb controlled, carbohydrate counting, avoiding concentrated sugars Current exercise: aerobics and housecleaning Tobacco/Alcohol Use: None Lives at home with and 3 kids, no occupation Current Outpatient Medications Medication Sig Dispense Refill insulin aspart U-100 (NovoLOG) 100 unit/mL injection Use as directed via insulin pump approx. 100 units daily total. . 30 mL 5 vitamin with Ca-Iron-FA 27-1 mg Tab Take 1 tablet by mouth daily . No current facility-administered medications for this visit. Review of Systems: Review of Systems Constitutional: Negative for activity change, appetite change, fatigue and unexpected weight change. Eyes: Negative for photophobia and visual disturbance. Respiratory: Negative for chest tightness and shortness of breath. Cardiovascular: Negative for chest pain, palpitations and leg swelling. Gastrointestinal: Negative for abdominal pain, constipation, diarrhea, nausea and vomiting. Endocrine: Negative for cold intolerance, heat intolerance, polydipsia, polyphagia and polyuria. Genitourinary: Negative for difficulty urinating and frequency. Musculoskeletal: Negative for arthralgias and myalgias. Skin: Negative for rash and wound. Neurological: Negative for dizziness, weakness and numbness. Psychiatric/Behavioral: Negative for confusion and sleep disturbance. The patient is not nervous/anxious. The following portions of the patient's history were reviewed and updated as appropriate: allergies, current medications, past family history, past medical history, past social history, past surgicalhistory and problem list. Objective: BP 120/78 Pulse 73 Resp 18 Wt 74.5 kg (164 lb 4.8 oz) SpO2 98% BMI 28.24 kg/m Wt Readings from Last 3 Encounters: 03/26/20 74.5 kg (164 lb 4.8 oz) 09/21/19 78.9 kg (174 lb) 06/20/19 75.1 kg (165 lb 8 oz) Physical Exam: Physical Exam General: alert, appears stated age and cooperative Eyes: conjunctivae/corneas clear. PERRL, EOM's intact. Neck: no adenopathy, supple, symmetrical, trachea midline. Thyroid: No thyromegaly appreciated Lung: clear to auscultation bilaterally Heart: regular rate and rhythm, S1, S2 normal, no murmur, click, rub or gallop Extremities: extremities normal, atraumatic, no cyanosis or edema Feet: Dry skin, Bilateral Feet: warm, good capillary refill, normal PT, normal DP and normal sensory exam. Monofilament exam not assessed, bilateral lower extremities. Neuro: normal without focal findings, mental status, speech normal, alert and oriented x3 and JITENDRA Lab Review 03/23/2020 Hemoglobin A1c 9.4% Creatinine 0.61 GFR 118 AST 21 ALT 32 Cholesterol 175 triglycerides 66 HDL 49 LDL 113 TSH 2.41 T4 1.06 Microalbumin creatinine ratio 6.6 Date: 09/14/19 Hemoglobin A1C 8.6% Creatinine 0.62 [id number] AST 20 ALT 38 06/09/2019 Hemoglobin A1c 8.2% Creatinine 0.8, estimated GFR 126, K3.9 AST 21, ALT 36 T cholesterol 146, TG 50, HDL 57, LDL 79 TSH 2.63, free T4--0.97 CBC: H/H 13.8/32.8, WBC 3.0, platelets 180,000 Microalbumin/creatinine ratio 6.0 03/17/19 HgbA1c 10.4% 11/08/2018 Hemoglobin A1c 9.2% Creatinine 0.53, estimated GFR 140, K3.6 AST 28, ALT 49 T cholesterol 163, TG 68, HDL 58, LDL 91 03/01/2018 Hemoglobin A1c 9.0% Creatinine 0.55, estimated GFR 135, K3.7 Microalbumin/creatinine ratio 11.8 Assessment: Dx: 1. Uncontrolled type 1 diabetes mellitus with hyperglycemia (HCC) Comprehensive Metabolic Panel Hemoglobin A1c Type 1 diabetes, under fair control Currently managed with: Insulin Pump Novolog insulin Current Hemoglobin A1C= 9.4% 03/23/20 8.6% 09/14/19 Lab Results Component Value Date HGBA1C 8.6 09/14/2019 Home blood sugar records: Pump downloaded and reviewed in addition Dexcom data Any episodes of hypoglycemia? None since last visit NOTES: DM Complication Review: Retinopathy: Negative Exam within last 12 months: yes Date: 01/2020 Exhibition Designer/Sheep Shearer: Dr. Gooden in [place] Other Ophthalmologic Conditions: None known Nephropathy: Negative Creatinine 0.61 GFR 118 03/23/2020 Lab Results Component Value Date CREATININE 0.62 09/14/2019 EXTEGFR 116 09/14/2019 EXTEGFRAFAME 140 09/14/2019 Microlbumin/creat ratio: 6.6 on 03/23/2020 Is patient on SIRENA inhibitor or angiotensin II receptor roland? no Peripheral Neuropathy: Negative Denies symptoms associated with neuropathy (numbness and/or tingling) Autonomic Neuropathy: Negative Hypoglycemia unawareness. Senses low BG at 60mg/dl. Hyperlipidemia: Negative Currently taking: No lipid lowering agents. LFT's WNL Cholesterol 175 triglycerides 66 HDL 49 LDL 113 Plan: Encouraged the patient to follow low-fat low-cholesterol diet Lab Results Component Value Date AST 20 09/14/2019 ALT 38 09/14/2019 Lab Results Component Value Date EXTCHOL 146 06/09/2019 EXTTRIG 50 06/09/2019 EXTHDL 57 06/09/2019 EXTLDLCALC 79 06/09/2019 Hypertension: Negative . Currently taking: Patient on no antihypertensives BP: 120/78 Cardiac: Negative Experiencing chest pain No Experiencing shortness of breath No History of No history of CAD Follows routinely with: Vascular: Negative History of None Feet: Last foot exam: 03/26/20 Follows with Podiatry: No Tack Driller: History of foot ulceration: No History of amputation: No Thyroid: Negative TSH 2.41, free T4 1.067 3120 Lab Results Component Value Date TSH 2.63 06/09/2019 Negative Other: Current Pump Settings: Basal Rates: 0000: 0.850 0100 1.300 0500 0.700 0900 0.800 1300 1.500 1900 1.200 2300 1.110 Carb Ratios: 0000 6.0 1100 7.0 1500 7.0 2100 6.0 Sensitivity: 0000 32 2200 35 Plan: 1. Type 1 diabetes Insulin Pump - Changes in BOLD Basal Rates: 0000: 0.850 0100 1.300 0500 0.800 0900 0.800 1300 1.500 1900 1.200 2300 1.110 Carb Ratios: 0000 6.0 1100 7.0 1500 6.0 2100 6.0 Sensitivity: 0000 32 2200 35 The above changes made to the patient's current pump settings. Patient was made aware however that bolusing with each meal is really what is going to help get her blood sugar down. Her basal rates are really what we would expect her to be based on her weight currently. But it appears that she is only bolusing sometimes once per day. She was reminded that the goal hemoglobin A1c for her would be 7%. She was reminded of the risks/complications of diabetes should she continue to allow her blood sugar to be out of control. 2. Education: Reviewed ABCs of diabetes management (respective goals in parentheses): A1C (7.0-8.0), blood pressure (<130/80), and cholesterol (LDL <100). 3. Compliance at present is estimated to be fair. Efforts to improve compliance (if necessary) willbe directed at regular blood sugar monitorin times daily, increasing mealtime bolus. 4. Follow up: 4 months 5. Record blood sugar readings as instructed. Call if BG consistently <70 or >250. [phone] Patient has been checking blood glucoses 4 times daily for the past 90 days. Patient needs to continue checking blood glucoses 4 times daily. Blood glucose readings are used to adjust medication or insulin doses for meals, monitor dietary compliance, and adjust for high or low blood glucoses by patient on a daily basis. Blood glucose readings are reviewed at office visits for adjustment in medication regimen and assistance with dietary management, and other self- management issues including exercise, etc. Prognosis: Good. Duration of need for diabetes testing equipment: Permanent #150 strips/month prescribed. 6. Bring blood sugar meter to follow up appointment. Orders Placed This Encounter Procedures Comprehensive Metabolic Panel Hemoglobin A1c Electronically signed by Marion JUAREZ 03/26/2012:04 PM documented in this encounter* Emmy Jacob PA-C - 09/05/2020 11:07 AM EST Patient ID: Matthew Patton is a 35 y.o. female 1985 Subjective: Matthew Patton presents for follow up of Type 1 diabetes Patient has had diabetes for 18 years, diagnosed at 16 years old HPI is a 35-year-old female patient who presents the office today for follow-up of her type1 diabetes. Patient has been feeling quite well and denies any complaints today. She reports high blood sugar at various times throughout the day; most often due to missing mealtime boluses. Patient reports difficulty remembering to bolus. Her most recent hemoglobin A1c was 9.3%. Patient is managedwith an insulin pump with NovoLog insulin. The patient uses a Dexcom sensor, and is checking her blood sugar quite often. Patient's pump and Dexcom were downloaded to review today. Pump download supports patient's difficulty with bolusing. She denies any complications of her diabetes. Currently managed with: Insulin Pump Current monitoring regimen: SMBG 4 times daily - Dexcom CGM Social History: Weight trend: is stable Current diet: carb controlled, carbohydrate counting, avoiding concentrated sugars Current exercise: aerobics and housecleaning Tobacco/Alcohol Use: None Lives at home with and 3 kids Current Outpatient Medications Medication Sig Dispense Refill insulin aspart U-100 (NovoLOG) 100 unit/mL injection Use as directed via insulin pump approx. 100 units daily total. . 30 mL 5 blood sugar diagnostic (glucose blood) strips Use as directed: four times daily. E11.65 . 150 each 11 blood-glucose meter Misc by Miscellaneous route . LANCETS MISC by Miscellaneous route . vitamin with Ca-Iron-FA 27-1 mg Tab Take 1 tablet by mouth daily . No current facility-administered medications for this visit. Review of Systems: Review of Systems Constitutional: Negative for activity change, appetite change, fatigue and unexpected weight change. Eyes: Negative for photophobia and visual disturbance. Respiratory: Negative for chest tightness and shortness of breath. Cardiovascular: Negative for chest pain, palpitations and leg swelling. Gastrointestinal: Negative for abdominal pain, constipation, diarrhea, nausea and vomiting. Endocrine: Negative for cold intolerance, heat intolerance, polydipsia, polyphagia and polyuria. Genitourinary: Negative for difficulty urinating and frequency. Musculoskeletal: Negative for arthralgias and myalgias. Skin: Negative for rash and wound. Neurological: Negative for dizziness, weakness and numbness. Psychiatric/Behavioral: Negative for confusion and sleep disturbance. The patient is not nervous/anxious. The following portions of the patient's history were reviewed and updated as appropriate: allergies, current medications, past family history, past medical history, past social history, past surgicalhistory and problem list. Objective: BP 119/75 Pulse 83 Ht 5' 3.96 Wt 74.8 kg (165 lb) BMI 28.36 kg/m Wt Readings from Last 3 Encounters: 09/05/20 74.8 kg (165 lb) 03/26/20 74.5 kg (164 lb 4.8 oz) 09/21/19 78.9 kg (174 lb) Physical Exam: Physical Exam General: alert, appears stated age and cooperative Eyes: conjunctivae/corneas clear. PERRL, EOM's intact. Neck: no adenopathy, supple, symmetrical, trachea midline. Thyroid: No thyromegaly appreciated Lung: clear to auscultation bilaterally Heart: regular rate and rhythm, S1, S2 normal, no murmur, click, rub or gallop Extremities: extremities normal, atraumatic, no cyanosis or edema Feet: Dry skin, Bilateral Feet: warm, good capillary refill, normal PT, normal DP and normal sensory exam. Monofilament exam not assessed, bilateral lower extremities. Neuro: normal without focal findings, mental status, speech normal, alert and oriented x3 and JITENDRA Lab Review 08/13/2020 Hemoglobin A1c 9.3% Creatinine 0.58 GFR 126 AST 16 ALT 36 K: 3.5, Na: 139 03/23/2020 Hemoglobin A1c 9.4% Creatinine 0.61 GFR 118 AST 21 ALT 32 Cholesterol 175 triglycerides 66 HDL 49 LDL 113 TSH 2.41 T4 1.06 Microalbumin creatinine ratio 6.6 Date: 09/14/19 Hemoglobin A1C 8.6% Creatinine 0.62 [id number] AST 20 ALT 38 06/09/2019 Hemoglobin A1c 8.2% Creatinine 0.8, estimated GFR 126, K3.9 AST 21, ALT 36 T cholesterol 146, TG 50, HDL 57, LDL 79 TSH 2.63, free T4--0.97 CBC: H/H 13.8/32.8, WBC 3.0, platelets 180,000 Microalbumin/creatinine ratio 6.0 03/17/19 HgbA1c 10.4% 11/08/2018 Hemoglobin A1c 9.2% Creatinine 0.53, estimated GFR 140, K3.6 AST 28, ALT 49 T cholesterol 163, TG 68, HDL 58, LDL 91 03/01/2018 Hemoglobin A1c 9.0% Creatinine 0.55, estimated GFR 135, K3.7 Microalbumin/creatinine ratio 11.8 Assessment: Dx: 1. Type 1 diabetes mellitus without complication (HCC) Hemoglobin A1c Comprehensive Metabolic Panel T4, Free TSH Lipid Panel Type 1 diabetes, under fair control Currently managed with: Insulin Pump Novolog insulin Current Hemoglobin A1C= 9.3% 08/13/2020 9.4% 03/23/20 8.6% 09/14/19 Lab Results Component Value Date HGBA1C 8.6 09/14/2019 Home blood sugar records: Pump downloaded and reviewed in addition Dexcom data Any episodes of hypoglycemia? None since last visit NOTES: DM Complication Review: Retinopathy: Negative Exam within last 12 months: yes Date: 01/2020 Exhibition Designer/Sheep Shearer: Dr. Gooden in [place] Other Ophthalmologic Conditions: None known Nephropathy: Negative Creatinine 0.58 GFR 126 07/2020 Lab Results Component Value Date CREATININE 0.62 09/14/2019 EXTEGFR 116 09/14/2019 EXTEGFRAFAME 140 09/14/2019 Microlbumin/creat ratio: 6.6 on 03/23/2020 Is patient on SIRENA inhibitor or angiotensin II receptor roland? no Peripheral Neuropathy: Negative Denies symptoms associated with neuropathy (numbness and/or tingling) Autonomic Neuropathy: Negative Hypoglycemia unawareness. Senses low BG at 60mg/dl. Hyperlipidemia: Negative Currently taking: No lipid lowering agents. LFT's WNL Plan: Encouraged the patient to follow low-fat low-cholesterol diet Lab Results Component Value Date AST 20 09/14/2019 ALT 38 09/14/2019 Lab Results Component Value Date EXTCHOL 146 06/09/2019 EXTTRIG 50 06/09/2019 EXTHDL 57 06/09/2019 EXTLDLCALC 79 06/09/2019 Hypertension: Negative . Currently taking: Patient on no antihypertensives BP: 119/75 Cardiac: Negative Experiencing chest pain No Experiencing shortness of breath No History of No history of CAD Follows routinely with: Vascular: Negative History of None Feet: Last foot exam: 09/06/20 Follows with Podiatry: No Tack Driller: History of foot ulceration: No History of amputation: No Thyroid: Negative TSH 2.41 T4 1.06 02/2020 Lab Results Component Value Date TSH 2.63 06/09/2019 Negative Other: Current Pump Settings: Basal Rates: 0000: 0.850 0100 1.300 0500 0.800 0900 0.800 1300 1.500 1900 1.200 2300 1.110 Carb Ratios: 0000 6.0 1100 7.0 1500 6.0 2100 6.0 Sensitivity: 0000 32 2200 45 Plan: 1. Type 1 diabetes Insulin Pump - No Changes Basal Rates: 0000: 0.850 0100 1.300 0500 0.800 0900 0.800 1300 1.500 1900 1.200 2300 1.110 Carb Ratios: 0000 6.0 1100 7.0 1500 6.0 2100 6.0 Sensitivity: 0000 32 2200 45 No changes made to the patient's current pump settings. Patient was made aware however that bolusing with each meal is really what is going to help get her blood sugar down. Her basal rates are really what we would expect her to be based on her weight currently. But it appears that she is only bolusing sometimes 0-1 per day. Patient was encouraged to begin calling in blood sugars once weekly so that further adjustments can be made as necessary. She and I also set reminders on patient's pump andDexcom to help with remembering to bolus after meals. She was reminded that the goal hemoglobin A1cfor her would be 7%. She was reminded of the risks/complications of diabetes should she continue to allow her blood sugar to be out of control. 2. Education: Reviewed ABCs of diabetes management (respective goals in parentheses): A1C (7.0-8.0), blood pressure (<130/80), and cholesterol (LDL <100). 3. Compliance at present is estimated to be fair. Efforts to improve compliance (if necessary) willbe directed at regular blood sugar monitorin times daily, increasing mealtime bolus. 4. Follow up: 4 months 5. Record blood sugar readings as instructed. Call if BG consistently <70 or >250. [phone] Patient has been checking blood glucoses 4 times daily for the past 90 days. Patient needs to continue checking blood glucoses 4 times daily. Blood glucose readings are used to adjust medication or insulin doses for meals, monitor dietary compliance, and adjust for high or low blood glucoses by patient on a daily basis. Blood glucose readings are reviewed at office visits for adjustment in medication regimen and assistance with dietary management, and other self- management issues including exercise, etc. Prognosis: Good. Duration of need for diabetes testing equipment: Permanent #150 strips/month prescribed. 6. Bring blood sugar meter to follow up appointment. Orders Placed This Encounter Procedures Hemoglobin A1c Comprehensive Metabolic Panel T4, Free TSH Lipid Panel Electronically signed by Emmy Jacob PA-C 09/06/20 8:36 AM documented in this encounter* Xu Reid PA-C - 06/20/2019 11:15 AM EDT Patient ID: Matthew Patton is a 33 y.o. female 1985 Subjective: Matthew Patton presents for follow up of Type 1 diabetes Patient has had diabetes for 18 years, diagnosed at 16 years old HPI Patient initially seen via transfer from ALBERTO Singh CNP three months ago at which time her hemoglobin A1c was 10.4%. Since her initial apt with us she has started using a Dexcom CGM which she states has helped her dramatically with monitoring BGs and remembering to bolus. She will have occasional low BGs after bolusing in the the morning, otherwise she experiences mostly hyperglycemia through the afternoon and into the evening. Currently managed with: Insulin Pump Current monitoring regimen: SMBG 4 times daily - Dexcom CGM Social History: Weight trend: is stable Current diet: carb controlled, carbohydrate counting, avoiding concentrated sugars Current exercise: aerobics and housecleaning Tobacco/Alcohol Use: None Lives at home with and 3 kids, no occupation Current Outpatient Medications Medication Sig Dispense Refill insulin aspart U-100 (NovoLOG) 100 unit/mL injection Inject under the skin 3 (three) times a day before meals . vitamin with Ca-Iron-FA 27-1 mg Tab Take 1 tablet by mouth daily . No current facility-administered medications for this visit. Review of Systems: Review of Systems Constitutional: Negative for activity change, appetite change, fatigue and unexpected weight change. Eyes: Negative for photophobia and visual disturbance. Respiratory: Negative for chest tightness and shortness of breath. Cardiovascular: Negative for chest pain, palpitations and leg swelling. Gastrointestinal: Negative for abdominal pain, constipation, diarrhea, nausea and vomiting. Endocrine: Negative for cold intolerance, heat intolerance, polydipsia, polyphagia and polyuria. Genitourinary: Negative for difficulty urinating and frequency. Musculoskeletal: Negative for arthralgias and myalgias. Skin: Negative for rash and wound. Neurological: Negative for dizziness, weakness and numbness. Psychiatric/Behavioral: Negative for confusion and sleep disturbance. The patient is not nervous/anxious. The following portions of the patient's history were reviewed and updated as appropriate: allergies, current medications, past family history, past medical history, past social history, past surgicalhistory and problem list. Objective: There were no vitals taken for this visit. Wt Readings from Last 3 Encounters: 03/17/19 72.7 kg (160 lb 3.2 oz) Physical Exam: Physical Exam General: alert, appears stated age and cooperative Eyes: conjunctivae/corneas clear. PERRL, EOM's intact. Neck: no adenopathy, supple, symmetrical, trachea midline. Thyroid: No thyromegaly appreciated Lung: clear to auscultation bilaterally Heart: regular rate and rhythm, S1, S2 normal, no murmur, click, rub or gallop Extremities: extremities normal, atraumatic, no cyanosis or edema Feet: Dry skin, Bilateral Feet: warm, good capillary refill, normal PT, normal DP and normal sensory exam. Monofilament exam not assessed, bilateral lower extremities. Neuro: normal without focal findings, mental status, speech normal, alert and oriented x3 and JITENDRA Lab Review Date: 06/09/2019 Hemoglobin A1c 8.2% Creatinine 0.8, estimated GFR 126, K3.9 AST 21, ALT 36 T cholesterol 146, TG 50, HDL 57, LDL 79 TSH 2.63, free T4--0.97 CBC: H/H 13.8/32.8, WBC 3.0, platelets 180,000 Microalbumin/creatinine ratio 6.0 03/17/19 HgbA1c 10.4% 11/08/2018 Hemoglobin A1c 9.2% Creatinine 0.53, estimated GFR 140, K3.6 AST 28, ALT 49 T cholesterol 163, TG 68, HDL 58, LDL 91 03/01/2018 Hemoglobin A1c 9.0% Creatinine 0.55, estimated GFR 135, K3.7 Microalbumin/creatinine ratio 11.8 Assessment: Dx: No diagnosis found. Type 1 diabetes, under fair control Currently managed with: Insulin Pump Current Hemoglobin A1C= Lab Results Component Value Date HGBA1C 8.2 06/09/2019 Home blood sugar records: Fasting B-378 Pre-lunch B->400 Pre-supper B->400 Bedtime B->400 Any episodes of hypoglycemia? yes - rarely, usually during the night if she is up and about or takes a correction bolus in the evening. NOTES: DM Complication Review: Retinopathy: Negative Exam within last 12 months: yes Date: 08/2018 Exhibition Designer/Sheep Shearer: Dr. Gooden in [place] Other Ophthalmologic Conditions: None known Nephropathy: Negative Creatinine 0.8, estimated GFR 126 Lab Results Component Value Date CREATININE 0.58 06/09/2019 EXTEGFR 126 06/09/2019 EXTEGFRAFAME 153 06/09/2019 Microlbumin/creat ratio: 11.8 on 03/01/18 No results found for: EXTMICROALBC Is patient on SIRENA inhibitor or angiotensin II receptor roland? no Peripheral Neuropathy: Negative Denies symptoms associated with neuropathy (numbness and/or tingling) Autonomic Neuropathy: Negative Hypoglycemia unawareness. Senses low BG at 60mg/dl. Hyperlipidemia: Negative Currently taking: No lipid lowering agents. LFT's WNL Lab Results Component Value Date AST 21 06/09/2019 ALT 36 06/09/2019 Lab Results Component Value Date EXTCHOL 146 06/09/2019 EXTTRIG 50 06/09/2019 EXTHDL 57 06/09/2019 EXTLDLCALC 79 06/09/2019 Hypertension: Negative . Currently taking: Patient on no antihypertensives Cardiac: Negative Experiencing chest pain No . Experiencing shortness of breath No History of No history of CAD Follows routinely with: Vascular: Negative History of None Feet: Last foot exam: 06/20/19 Follows with Podiatry: No Tack Driller: History of foot ulceration: No History of amputation: No Thyroid: Negative Lab Results Component Value Date TSH 2.63 06/09/2019 Negative Other: Current Pump Settings: Basal Rates: 0000: 0.775 0100 1.200 0800 0.750 1500 1.400 1900 1.100 2300 1.000 Carb Ratios; 0000 5.0 1100 8.0 1500 8.0 2100 6.0 Sensitivity: 0000 35 2200 40 Plan: 1. Type 1 diabetes Insulin Pump - Changes in BOLD Basal Rates: 0000: 0.775 0100 1.200 0800 0.750 1300 1.500 1900 1.200 2300 1.100 Carb Ratios: 0000 5.0 1100 8.5 1500 8.0 2100 6.0 Sensitivity: 0000 32 2200 35 The above changes were made to the patient's insulin pump today. She has shown notable improvement in her glycemic control since her last appt, specifically since starting CGM use. Her hemoglobin A1chas decreased from 10.4% to 8.2% over 3 months. She will continue to use Dexcom CGM and we will follow-up in 3 months to reevaluate. 2. Education: Reviewed ABCs of diabetes management (respective goals in parentheses): A1C (7.0-8.0), blood pressure (<130/80), and cholesterol (LDL <100). 3. Compliance at present is estimated to be fair. Efforts to improve compliance (if necessary) willbe directed at regular blood sugar monitorin times daily, increasing mealtime bolus. 4. Follow up: 3 months 5. Record blood sugar readings as instructed. Call if BG consistently <70 or >250. [phone] Patient has been checking blood glucoses 4 times daily for the past 90 days. Patient needs to continue checking blood glucoses 4 times daily. Blood glucose readings are used to adjust medication or insulin doses for meals, monitor dietary compliance, and adjust for high or low blood glucoses by patient on a daily basis. Blood glucose readings are reviewed at office visits for adjustment in medication regimen and assistance with dietary management, and other self- management issues including exercise, etc. Prognosis: Good. Duration of need for diabetes testing equipment: Permanent #150 strips/month prescribed. 6. Bring blood sugar meter to follow up appointment. No orders of the defined types were placed in this encounter. Electronically signed by: Xu Reid PA-C, [facility] documented in this encounter* Jarrett Waite, BE[employer] - 12/04/2020 11:13 AM EDT Patient ID: Matthew Patton is a 35 y.o. female 1985 Subjective: Matthew Patton presents for follow up of Type 1 diabetes Patient has had diabetes for 18 years, diagnosed at 16 years old HPI is a 35-year-old female patient who presents the office today for follow-up of her type1 diabetes. Patient has been feeling quite well and denies any complaints today. She reports high blood sugar at various times throughout the day; most often due to missing mealtime boluses. Patient reports difficulty remembering to bolus. Her most recent hemoglobin A1c was 9.3%. Patient is managedwith an insulin pump with NovoLog insulin. The patient uses a Dexcom sensor, and is checking her blood sugar quite often. Patient's pump and Dexcom were downloaded to review today. Pump download supports patient's difficulty with bolusing. She denies any complications of her diabetes. Currently managed with: Insulin Pump Current monitoring regimen: SMBG 4 times daily - Dexcom CGM Social History: Weight trend: is stable Current diet: carb controlled, carbohydrate counting, avoiding concentrated sugars Current exercise: aerobics and housecleaning Tobacco/Alcohol Use: None Lives at home with and 3 kids Current Outpatient Medications Medication Sig Dispense Refill blood sugar diagnostic (glucose blood) strips Use as directed: four times daily. E11.65 . 150 each 11 blood-glucose meter Misc Use to check BG 4 times daily. Dg code E11.65 . 150 each 11 insulin aspart U-100 (NovoLOG) 100 unit/mL injection Use as directed via insulin pump approx. 100 units daily total. . 30 mL 5 lancets Misc Use to check BG 4 times daily. Dg code E11.65 Use what is covered by insurance. May get 90 day if insurance allows and cheaper for pt. . 200 each 11 vitamin with Ca-Iron-FA 27-1 mg Tab Take 1 tablet by mouth daily . No current facility-administered medications for this visit. Review of Systems: Review of Systems Constitutional: Negative for activity change, appetite change, fatigue and unexpected weight change. Eyes: Negative for photophobia and visual disturbance. Respiratory: Negative for chest tightness and shortness of breath. Cardiovascular: Negative for chest pain, palpitations and leg swelling. Gastrointestinal: Negative for abdominal pain, constipation, diarrhea, nausea and vomiting. Endocrine: Negative for cold intolerance, heat intolerance, polydipsia, polyphagia and polyuria. Genitourinary: Negative for difficulty urinating and frequency. Musculoskeletal: Negative for arthralgias and myalgias. Skin: Negative for rash and wound. Neurological: Negative for dizziness, weakness and numbness. Psychiatric/Behavioral: Negative for confusion and sleep disturbance. The patient is not nervous/anxious. The following portions of the patient's history were reviewed and updated as appropriate: allergies, current medications, past family history, past medical history, past social history, past surgicalhistory and problem list. Objective: BP 113/76 Pulse 75 Ht 5' 3 Wt 80.7 kg (178 lb) BMI 31.53 kg/m Wt Readings from Last 3 Encounters: 12/04/20 80.7 kg (178 lb) 09/05/20 74.8 kg (165 lb) 03/26/20 74.5 kg (164 lb 4.8 oz) Physical Exam: Physical Exam General: alert, appears stated age and cooperative Eyes: conjunctivae/corneas clear. PERRL, EOM's intact. Neck: no adenopathy, supple, symmetrical, trachea midline. Thyroid: No thyromegaly appreciated Lung: clear to auscultation bilaterally Heart: regular rate and rhythm, S1, S2 normal, no murmur, click, rub or gallop Extremities: extremities normal, atraumatic, no cyanosis or edema Feet: Dry skin, Bilateral Feet: warm, good capillary refill, normal PT, normal DP and normal sensory exam. Monofilament exam not assessed, bilateral lower extremities. Neuro: normal without focal findings, mental status, speech normal, alert and oriented x3 and JITENDRA Lab Review 08/13/2020 Hemoglobin A1c 9.3% Creatinine 0.58 GFR 126 AST 16 ALT 36 K: 3.5, Na: 139 03/23/2020 Hemoglobin A1c 9.4% Creatinine 0.61 GFR 118 AST 21 ALT 32 Cholesterol 175 triglycerides 66 HDL 49 LDL 113 TSH 2.41 T4 1.06 Microalbumin creatinine ratio 6.6 Date: 09/14/19 Hemoglobin A1C 8.6% Creatinine 0.62 [id number] AST 20 ALT 38 06/09/2019 Hemoglobin A1c 8.2% Creatinine 0.8, estimated GFR 126, K3.9 AST 21, ALT 36 T cholesterol 146, TG 50, HDL 57, LDL 79 TSH 2.63, free T4--0.97 CBC: H/H 13.8/32.8, WBC 3.0, platelets 180,000 Microalbumin/creatinine ratio 6.0 03/17/19 HgbA1c 10.4% 11/08/2018 Hemoglobin A1c 9.2% Creatinine 0.53, estimated GFR 140, K3.6 AST 28, ALT 49 T cholesterol 163, TG 68, HDL 58, LDL 91 03/01/2018 Hemoglobin A1c 9.0% Creatinine 0.55, estimated GFR 135, K3.7 Microalbumin/creatinine ratio 11.8 Assessment: Dx: 1. Type 1 diabetes mellitus without complication (HCC) Comprehensive Metabolic Panel Hemoglobin A1c Lipid Panel Microalbumin/Creatinine Ratio, UR Random TSH T4, Free CBC and Differential Type 1 diabetes, under fair control Currently managed with: Insulin Pump Novolog insulin Current Hemoglobin A1C= 9.3% 08/13/2020 9.4% 03/23/20 8.6% 09/14/19 Lab Results Component Value Date HGBA1C 8.6 09/14/2019 Home blood sugar records: Pump downloaded and reviewed in addition Dexcom data Average BG: Night: 149 (79% in target) Mornin (59% in target) Afternoon: 175 (58% in target) Evenin (57% in target) Any episodes of hypoglycemia? None since last visit NOTES: DM Complication Review: Retinopathy: Negative Exam within last 12 months: yes Date: 01/2020 Exhibition Designer/Sheep Shearer: Dr. Gooden in [place] Other Ophthalmologic Conditions: None known Nephropathy: Negative Creatinine 0.58 GFR 126 07/2020 Lab Results Component Value Date CREATININE 0.62 09/14/2019 EXTEGFR 116 09/14/2019 EXTEGFRAFAME 140 09/14/2019 Microlbumin/creat ratio: 6.6 on 03/23/2020 Is patient on SIRENA inhibitor or angiotensin II receptor roland? no Peripheral Neuropathy: Negative Denies symptoms associated with neuropathy (numbness and/or tingling) Autonomic Neuropathy: Negative Hypoglycemia unawareness. Senses low BG at 60mg/dl. Hyperlipidemia: Negative Currently taking: No lipid lowering agents. LFT's WNL Plan: Encouraged the patient to follow low-fat low-cholesterol diet Lab Results Component Value Date AST 20 09/14/2019 ALT 38 09/14/2019 Lab Results Component Value Date EXTCHOL 146 06/09/2019 EXTTRIG 50 06/09/2019 EXTHDL 57 06/09/2019 EXTLDLCALC 79 06/09/2019 Hypertension: Negative . Currently taking: Patient on no antihypertensives BP: 113/76 Cardiac: Negative Experiencing chest pain No Experiencing shortness of breath No History of No history of CAD Follows routinely with: Vascular: Negative History of None Feet: Last foot exam: 12/04/20 Follows with Podiatry: No Tack Driller: History of foot ulceration: No History of amputation: No Thyroid: Negative TSH 2.41 T4 1.06 02/2020 Lab Results Component Value Date TSH 2.63 06/09/2019 Negative Other: Current Pump Settings: Basal Rates: 0000: 0.850 0100 1.300 0500 0.800 0900 0.800 1300 1.500 1900 1.200 2300 1.110 Carb Ratios: 0000 6.0 1100 7.0 1500 6.0 2100 6.0 Sensitivity: 0000 32 2200 45 Plan: 1. Type 1 diabetes Insulin Pump - change IC ratio with breakfast. Basal Rates: 0000: 0.850 0100 1.300 0500 0.800 0900 0.800 1300 1.500 1900 1.200 2300 1.110 Carb Ratios: 0000 6.0 0500 5.5 1100 7.0 1500 6.0 2100 6.0 Sensitivity: 0000 32 2200 45 No changes made to the patient's current pump settings. Continue with Control IQ. 2. Education: Reviewed ABCs of diabetes management (respective goals in parentheses): A1C (7.0-8.0), blood pressure (<130/80), and cholesterol (LDL <100). 3. Compliance at present is estimated to be fair. Efforts to improve compliance (if necessary) willbe directed at regular blood sugar monitorin times daily, increasing mealtime bolus. 4. Follow up: 4 months 5. Record blood sugar readings as instructed. Call if BG consistently <70 or >250. [phone] Patient has been checking blood glucoses 4 times daily for the past 90 days. Patient needs to continue checking blood glucoses 4 times daily. Blood glucose readings are used to adjust medication or insulin doses for meals, monitor dietary compliance, and adjust for high or low blood glucoses by patient on a daily basis. Blood glucose readings are reviewed at office visits for adjustment in medication regimen and assistance with dietary management, and other self- management issues including exercise, etc. Prognosis: Good. Duration of need for diabetes testing equipment: Permanent #150 strips/month prescribed. 6. Bring blood sugar meter to follow up appointment. Orders Placed This Encounter Procedures Comprehensive Metabolic Panel Hemoglobin A1c Lipid Panel Microalbumin/Creatinine Ratio, UR Random TSH T4, Free CBC and Differential Electronically Signed by: Jarrett Waite CNP 12/04/20 2:23 PM documented in this encounter Assessments Diagnosis Controlled diabetes mellitus type 1 without complications (HCC)- Primary Uncontrolled type 1 diabetes mellitus with hyperglycemia (HCC) Diagnosis Uncontrolled type 1 diabetes mellitus with hyperglycemia (HCC) Diagnosis Type 1 diabetes mellitus without complication (HCC)- Primary Type I (juvenile type) diabetes mellitus without mention of complication, not stated as uncontrolled Diagnosis Controlled diabetes mellitus type 1 without complications (HCC)- Primary History of Past Illness Problem Noted Date Resolved Date Vaginal bleeding in , third trimester 1 10/09/2016 08/11/2017 premature rupture of membranes 7 08/11/2017 Instructions * Patient Instructions* Marion Urias CNP - 03/26/2020 10:58 AM EDT Make sure that you are bolusing at ALL meals. Call our office with blood sugar > 180 consistently and we can make adjustments to your pump settings We are shooting for a goal hemoglobin A1C of 7.0% documented in this encounter Additional Source Comments INFORMATION SOURCE (unrecogn ized section and content) DATE CREATED AUTHOR AUTHOR'S ORGANIZ ATION 02/16/2018 [facility] DATE CREATED AUTHOR AUTHOR'S ORGANIZ ATION 02/16/2018 [facility] DATE CREATED AUTHOR AUTHOR'S ORGANIZ ATION 10/13/2023 [facility] Reason for Visit (unrecogniz ed section and content) Status Reason Specialty Diagnoses / Procedures Referred By Contact Referred To Contact Closed Specialty Services Required/Patien t's Best Interest Endocrinology Diagnoses Controlled diabetes mellitus type 1 without complications (HCC) Luba Singh, [employer] [address] [place] [address] Rebecca Medeiros MD [address] [place] [id number] Reason Comments Diabetes Mellitus 3 mo fu Reason Onset Date Comments Medication Refill 09/12/2021 Reason Onset Date Comments Medication Refill 05/13/2022 Reason Onset Date Comments Medication Refill 12/26/2022 Reason Comments Diabetes Mellitus Gap Closure (Health Maintenance) Diabeti c Eye Exam Never doneUrine Microalbumin due on 06/09/2020 Reason Comments Diabetes Mellitus Gap Closure (Health Maintenance) Foot Ex am Never doneDiabetic Eye Exam Never done Source Comments (unrecognize d section and content) In the event this informatio n is protected by the Federal Confidentiality of Alcohol and Drug Abuse Patient Records regulations: The Federal rules restrict any use of the information to criminally investigate or prosecute any alcohol or drug abuse patient.[facility] Care Teams (unrecognized sec tion and content) Ore Charger Relationship Specialty Start Date End Date Marina Ley MD [address] [place], [place] [id number] PCP - General Family Medicine 4/30/19 Ore Charger Relationship Specialty Start Date End Date Marina Ley MD [address] [place] [address] PCP - General Family Medicine 12/21/18 Ore Charger Relationship Specialty Start Date End Date Marina Ley MD [address] [place] [address] PCP - General Family Medicine 12/21/18 Ore Charger Relationship Specialty Start Date End Date Marina Ley MD [address] [place] [address] PCP - General Family Medicine 12/21/18 Ore Charger Relationship Specialty Start Date End Date Marina Ley MD [address] [place] [address] PCP - General Family Medicine 12/21/18 Ore Charger Relationship Specialty Start Date End Date Marina Ley MD [address] [place] [address] PCP - General Family Medicine 12/21/18 Ore Charger Relationship Specialty Start Date End Date Marina Ley MD [address] [place] [address] PCP - General Family Medicine 12/21/18 FOR RECORDS PERTAINING TO PATIENTS WHO ARE OR HAVE BEEN ENROLLED IN A CHEMICAL DEPENDENCY/SUBSTANCEABUSE PROGRAM, SOME INFORMATION MAY BE OMITTED. This clinical summary was aggregated from multiple sources. Caution should be exercised in using it in the provision of clinical care. This summary normalizes information from multiple sources, and as a consequence, information in this document may materially change the coding, format and clinical context of patient data. In addition, data may be omitted in some cases. CLINICAL DECISIONS SHOULD BE BASED ON THE PRIMARY CLINICAL RECORDS. [facility]. provides no warranty or guarantee of the accuracy or completeness of information in this document.
[2023-11-06 12:51] LABS: Absolute Lymphocyte Count 1.34 X10^3/uL (0.83-4.51); Absolute Neutrophil Count 2.7 X10^3/uL (2.0-7.7); Basophil# 0.05 X10^3/uL; Basophil% 1.1 % (0-1); Eosinophil# 0.14 X10^3/uL; Hematocrit 38.3 % (37-47); Hemoglobin 12.7 g/dL (12.0-15.0); Lymphocyte # 1.34 X10^3/ul (0.83-4.51); Lymphocyte % 28.3 % (19-41); Mean Corp Hgb Conc 33.2 g/dL (32-36); Mean Corpuscular Hgb 29.4 pg (27.0-32.0); Mean Corpuscular Volume 88.7 fL (81-99); Mean Platelet Vol. 11.1 fl (6.2-12.0); Monocyte# 0.45 X10^3/uL; Monocyte% 9.5 % (0-10); NRBC Flagged by Analyzer 0 % (0-5); Neutrophil # 2.74 X10^3/uL (2.7-7.7); Neutrophil % 57.9 % (47-70); Platelet Count 182 K/mm3 (150-450); RBC Distribution Width CV 12.9 % (11.6-14.6); RBC Distribution Width SD 41.6 fl (35.1-43.9); Red Blood Count 4.32 M/mm3 (4.2-5.4); White Blood Count 4.7 K/mm3 (4.4-11.0)
[2023-11-06 13:00] LABS: Hemoglobin A1c 6.6 % (3.8-5.6)
[2023-11-06 13:03] LABS: Microalbumin,Random Urine 5.5 mg/L (NO RANGE EST.); Microalbumin:Creatinine Ratio 12.5 mg/g CRE (<30 mg/g CRE)
[2023-11-06 13:06] LABS: AST(SGOT) 22 U/L (15-37); Alanine Aminotransfer ALT/SGPT 30 U/L (13-56); Albumin, Serum 3.6 g/dL (3.2-5.0); Alkaline Phosphatase 68 U/L (45-117); Anion Gap 9 (5-15); BUN 9 mg/dL (7-18); BUN/Creat Ratio 14.4 RATIO (10-20); Calcium,Total 8.6 mg/dL (8.5-10.1); Chloride 102 mmol/L (98-107); Cholesterol 139 mg/dL (200); Creatinine, Serum 0.62 mg/dL (0.55-1.02); EST Glomerular Filtration Rate 114 mL/min (>60); Est Glom Filt Rate - Afr Amer 137 mL/min (>60); Globulin 3.5 g/dL (2.2-4.2); Glucose 211 mg/dL (74-106); High Density Lipoprotein 53 mg/dL; Potassium 3.6 mmol/L (3.5-5.1); Protein, Total 7.1 g/dL (6.4-8.2); Sodium Level 136 mmol/L (136-145); T4 Free Direct 1.12 ng/dL (0.76-1.46); Thyroid Stim Hormone (TSH) 3.29 uIU/mL (0.358-3.74); Triglycerides 77 mg/dL; Very Low Density Lipoprotein 15 mg/dL (5-40)
== END | disposition home or self-care (01) ==
LOC: BIMLAB 08:13
PROVIDERS: PCP Family Medicine
DX: E10.9 Type 1 diabetes mellitus without complications (principal)
CPT/HCPCS: 36415; 80053; 80061; 82043; 82570; 83036; 84439; 84443; 85025

== ENCOUNTER 2023-11-25 18:43 | Emergency (ER) | payer MEDICAID, SELFPAY ==
[2023-11-25 18:43] VITALS: BP 161/76; PULSE 109; RESP 18; TEMP 37.1; O2SAT 100
--- NOTE | 2023-11-25 19:16 | US_ITS ---
STUDY: FIRST TRIMESTER OBSTETRICAL ULTRASOUND REASON FOR EXAM: Female, 38 years old Pelvic pain -- Recent miscarriage, possible retained products LMP: TECHNIQUE: Transabdominal and transvaginal TECHNICAL QUALITY: Adequate. PRIOR ULTRASOUND: None. FINDINGS: There is visualization of a single gestational sac in an abnormal intrauterine position in the lower uterine segment. The mean sac diameter (MSD) measures 1.44 cm, indicating an estimated gestational age (EGA) of 6 weeks, 2 days. The gestational sac shape is within normal limits. There is a visualized yolk sac. The yolk sac measures 3.6 mm. The placenta is non-visualized. pole noted with crown-rump length of 4.5 mm. No cardiac activity. The estimated gestation age (EGA) by LMP is 12 weeks, 4 days. The estimated date of delivery (ANKITA) by LMP is June 04, 2024. The estimated gestation age (EGA) by US is 6 weeks, 3 days. The estimated date of delivery (ANKITA) by US is [July 17, 2024. The uterus measures 11.39 x 4.15 x 7.17 cm. There is no demonstrated uterine fibroid. The cervix is closed. The right ovary measures 2.63 x 1.5 x 2.53 cm. There is no right ovarian cyst. There is no visualized right adnexal mass or complex lesion. The left ovary measures 4 x 2.64 x 2.15 cm. There is no left ovarian cyst. There is no visualized left adnexal mass or complex lesion. There is no fluid in the cul de sac. US/Transvaginal w/Preg US IMPRESSION: Intrauterine gestational sac containing pole without cardiac activity in the lower uterine segment which may be consistent with incomplete . Clinical correlation recommended Electronically Signed: Fabian Maldonado MD at 22:19 EDT ,
--- NOTE | 2023-11-25 19:18 | ED.VIS.FEGU ---
HPI HPI - Female History of Present Illness Chief Complaint: Vag Bld, Preg Informant: patient Pain Pain: Positive for Pelvic Pain Onset: Yesterday Context: Gradual Onset Timing: Continuous Quality: Positive for Cramping Location: RLQ, LLQ and Suprapubic Worsened by: - (Nothing) Relieved by: - (Flexing her hips and knees into a ball) Bleeding Issue: Positive for Vaginal bleeding and Passing clots Onset: Yesterday Context: Gradual Onset Timing: Continuous Maximum Severity: Heavy Associated Symptoms Associated Symptoms: Negative for Dysuria, Frequency, Urgency or Hematuria Narrative Narrative: Patient presents with pelvic pain and vaginal bleeding that has been getting worse since yesterday. Patient states she had a recent miscarriage. Patient states she has been having some heavy bleeding today. Patient states she is also having cramping in her lower abdomen. Patient states it is constant. Patient states it is gradually getting worse. Patient states it is better when she flexes her knees up into a ball. Patient states nothing makes it worse. Patient admits to some subjective chills but denies any fevers. Patient states her AUTO PARTS MANAGER is Dr. Snyder at [facility]. [facility] Medical History (Updated 11/25/23 @ 23:[address] Oneal Henao, DO) Diabetes type 1, controlled UTI (urinary tract infection) Home Medications vits,calcium no.78-iron fumarate-folic acid 29 mg-1 mg tablet 1 tab PO DAILY 07/17/17 [History Last Taken 07/16/17] glucagon (human recombinant) 1 mg injection kit (Glucagon Emergency Kit (human-recomb)) 1 mg IM ONCE 08/04/17 [History Last Taken Unknown] insulin syringe-needle U-100 0.3 mL 31 gauge x 5/16 (Ultra-Thin II (Short) Insulin syringe) #10 ea 08/04/17 [History Last Taken Unknown] Contour Next Test Strips (blood sugar diagnostic) #200 ea 11/01/18 [Rx Last Taken Unknown] insulin aspart U-100 100 unit/mL subcutaneous solution (Novolog U-100 Insulin aspart) See Rx Instructions subcut DAILY e10.9 #40 mL 11/01/18 [Rx Last Taken Unknown] Allergy/AdvReac Type Severity Reaction Status Date / Time lovastatin Allergy Other Verified 11/25/23 19:46 Family History Mother Cancer Father Hypertension High cholesterol Thyroid disorder Surgical History S/P Social History Smoking Status: Never smoker second hand exposure: No alcohol intake: never substance use type: does not use caffeine: No ROS ROS ED Constitutional Constitutional ED: Reports chills and subjective; Denies fever(s) Eyes Eyes: Denies blurry vision or change in vision ENT ENT ED: Denies rhinorrhea or sore throat Cardiovascular Cardiovascular: Denies chest pain or palpitations Respiratory/Chest Respiratory/Chest: Denies cough or dyspnea Gastrointestinal Gastrointestinal: Reports abdominal pain; Denies nausea or vomiting Genitourinary Genitourinary ED: Denies dysuria or hematuria Musculoskeletal Musculoskeletal: Denies back pain or neck pain Integumentary Denies abscess or rash Neurologic Neurologic: Denies headache(s) or weakness Allergic/Immunologic Allergic/Immunologic ED: Denies mouth swelling or urticaria EXAM Physical Exam Const Vital Signs: 11/25/23 18:43 11/25/23 19:59 11/25/23 19:59 Temperature 98.7 F 97.9 F 97.9 F Temperature Source Temporal Oral Pulse Rate 109 H 60 60 Respiratory Rate 18 16 16 Blood Pressure 161/76 H 103/63 103/63 Blood Pressure Mean 104 76 76 Pulse Ox 100 99 99 Oxygen Delivery Method Room Air Room Air 11/25/23 21:03 11/25/23 22:00 Temperature Temperature Source Pulse Rate 85 85 Respiratory Rate 16 16 Blood Pressure 124/69 H 124/69 H Blood Pressure Mean 87 87 Pulse Ox 96 96 Oxygen Delivery Method Room Air Room Air Positive well nourished and well developed General Appearance ED: well developed and NAD HEENT Reports moist mucous membranes Neck supple and no JVD Resp normal respiratory effort and clear to auscultation bilaterally Cardio regular rate and regular rhythm GI soft to palpation and non-distended Palpation: tender LLQ, RLQ and suprapubic Extremity normal to inspection and full ROM Neuro oriented x3, CN's II-XII intact bilaterally and no sensory deficits noted Sensorium / Orientation: alert Motor Exam: strength 5/5 throughout Psych mental status grossly normal MDM MDM MDM Narrative Medical decision making narrative: Differential diagnosis includes ectopic , ovarian cyst, ovarian torsion, retained products of conception, and dysmenorrhea. CBC will be obtained to assess for leukocytosis and anemia. Quantitative hCG will be obtained to assess for level. Basic metabolic profile will be obtained to assess for electrolyte abnormality and renal function. Type and Rh will be obtained to assess for type and Rh status. Transvaginal ultrasound will be obtained to assess for ectopic , ovarian torsion, and retained products of conception. Lab Data Attestation: I reviewed the patient's lab results. Lab results narrative: CBC was reviewed and was within normal limits. Basic metabolic profile was reviewed and was within normal limits. Quantitative hCG was reviewed and was 5886. Blood type was a negative. Labs: Laboratory Results - last 24 hr 11/25/23 19:40 WBC 8.6 RBC 4.54 Hgb 13.4 Hct 39.9 MCV 87.9 MCH 29.5 MCHC 33.6 RDW Std Deviation 41.7 RDW Coeff of Duncan 12.9 Plt Count 215 MPV 10.2 Immature Gran % (Auto) 0.300 Neut % (Auto) 76.2 H Lymph % (Auto) 13.4 L Forsy[place] % (Auto) 8.0 Eos % (Auto) 1.3 Baso % (Auto) 0.8 Absolute Neuts (auto) 6.6 Absolute Lymphs (auto) 1.15 Nucleated RBC % 0 Sodium 139 Potassium 3.7 Chloride 108 H Carbon Dioxide 24.0 Anion Gap 7 BUN 10 Creatinine 0.63 Estim Creat Clear Calc 130.39 Est GFR (MDRD) Af Amer 135 Est GFR (MDRD) Non-Af 112 BUN/Creatinine Ratio 15.8 Glucose 128 H Calcium 9.2 HCG, Quant 5886 H Blood Type A NEGATIVE Radiography Diagnostic Testing: Clinical Impression(s) from Imaging Studies Obstetrics Ultrasound 11/25/23 19:16 IMPRESSION: Intrauterine gestational sac containing pole without cardiac activity in the lower uterine segment which may be consistent with incomplete . Clinical correlation recommended Electronically Signed: Fabian Maldonado MD at 22:19 EDT , Pelvic ultrasound was obtained. There is an intrauterine gestational sac containing a pole but no cardiac activity. This is at the lower uterine segment. This is consistent with incomplete . This was interpreted by the radiologist and was also independently reviewed by myself. Treatment and Re-Evaluation Narrative: Patient was given IV fluids, morphine, and Zofran. Patient was given RhoGAM here. Patient was advised of her findings. Patient was instructed to take Tylenol or Motrin as needed for pain. Patient was instructed to follow-up with her AUTO PARTS MANAGER tomorrow as scheduled. Patient and spouse understood and were agreeable with the plan. All questions were answered. Discharge Plan Triage Chief Complaint: Vag Bld, Preg ED Provider: Oneal Henao Dx/Rx/DC Orders Clinical Impression: Incomplete spontaneous , Pelvic pain Instructions: ED MISCARRIAGE Incomplete Prescriptions: No Action glucagon (human recombinant) [Glucagon Emergency Kit (human)] 1 mg kit 1 mg IM ONCE (DME) insulin syringe-needle U-100 [Ultra-Thin II (Short) Ins Syr] 0.3 mL 31 gauge x 5/16 syringe See Dose Instructions .ROUTE .MEDSUPPLY Qty: 10 Rx Instructions: As directed vit,[id number] 1 TABLET tablet 1 tab PO DAILY Novolog U-100 Insulin aspart 100 unit/mL solution See Rx Instructions SC DAILY Qty: 40 3RF Dose Instruction: uses up to 120 units qd via pump SC DAILY; Rx Instructions: uses up to 120 units qd via pump SC DAILY; (DME) Contour Next Test Strips strip See Dose Instructions .ROUTE .MEDSUPPLY Qty: 200 11RF Dose Instruction: As directed Rx Instructions: use to check BG up to 6 x qd Primary Care Provider: Marina Ley Referrals: Marina Ley MD [Primary Care Provider] - 5-7 Days Activity Restrictions/Additional Instructions: Follow-up with your AUTO PARTS MANAGER doctor tomorrow as scheduled. Disposition Disposition: Home, Self Care Discharge Date/Time: 11/25/23 20:01
[2023-11-25] MEDS: Ondansetron 4 MG/2 ML Vial IV (19:39)
[2023-11-25] MEDS: 0.9% Normal Saline (1000mL) 1,000 ML 1000 ML IV (19:39)
[2023-11-25] MEDS: Morphine 4 MG/ML Syringe IV (19:39)
[2023-11-25 19:43] VITALS: BMI 33.5
[2023-11-25 19:44] VITALS: BMI 33.5
[2023-11-25 19:56] LABS: Absolute Lymphocyte Count 1.15 X10^3/uL (0.83-4.51); Absolute Neutrophil Count 6.6 X10^3/uL (2.0-7.7); Basophil# 0.07 X10^3/uL; Basophil% 0.8 % (0-1); Eosinophil# 0.11 X10^3/uL; Eosinophils% 1.3 % (0-5); Hematocrit 39.9 % (37-47); Hemoglobin 13.4 g/dL (12.0-15.0); Lymphocyte # 1.15 X10^3/ul (0.83-4.51); Lymphocyte % 13.4 % (19-41); Mean Corp Hgb Conc 33.6 g/dL (32-36); Mean Corpuscular Hgb 29.5 pg (27.0-32.0); Mean Corpuscular Volume 87.9 fL (81-99); Mean Platelet Vol. 10.2 fl (6.2-12.0); Monocyte# 0.69 X10^3/uL; NRBC Flagged by Analyzer 0 % (0-5); Neutrophil # 6.55 X10^3/uL (2.7-7.7); Neutrophil % 76.2 % (47-70); Platelet Count 215 K/mm3 (150-450); RBC Distribution Width CV 12.9 % (11.6-14.6); RBC Distribution Width SD 41.7 fl (35.1-43.9); Red Blood Count 4.54 M/mm3 (4.2-5.4); White Blood Count 8.6 K/mm3 (4.4-11.0)
[2023-11-25 19:59] VITALS: BP 103/63; PULSE 60; RESP 16; TEMP 36.6; O2SAT 99
[2023-11-25 20:12] VITALS: BMI 33.5
[2023-11-25 20:19] LABS: Anion Gap 7 (5-15); BUN 10 mg/dL (7-18); BUN/Creat Ratio 15.8 RATIO (10-20); Calcium,Total 9.2 mg/dL (8.5-10.1); Chloride 108 mmol/L (98-107); Creatinine, Serum 0.63 mg/dL (0.55-1.02); EST Glomerular Filtration Rate 112 mL/min (>60); Est Glom Filt Rate - Afr Amer 135 mL/min (>60); Estimated Creatinine Clearance 130.39 ml/min; Glucose 128 mg/dL (74-106); Potassium 3.7 mmol/L (3.5-5.1); Sodium Level 139 mmol/L (136-145)
[2023-11-25 20:37] LABS: hCG Titer Quant., Serum 5886 mIU/mL (1-3)
[2023-11-25 21:03] VITALS: BP 124/69; PULSE 85; RESP 16; O2SAT 96
[2023-11-25] MEDS: Rho(D) Immune Globulin 300 MCG (1500 Unit) Syringe IV (21:47)
[2023-11-25 22:00] VITALS: BP 124/69; PULSE 85; RESP 16; O2SAT 96
[2023-11-25 23:18] VITALS: BP 124/69; PULSE 85; RESP 16; TEMP 36.3; O2SAT 96
== END 2023-11-25 23:20 | disposition home or self-care (01) ==
LOC: ED 19:18
PROVIDERS: Emergency Provider Emergency Medicine; PCP Family Medicine; Visit Provider Emergency Medicine
DX: O03.39 Incomplete spontaneous abortion with other complications (principal); E10.9 Type 1 diabetes mellitus without complications; Z79.4 Long term (current) use of insulin; N93.9 Abnormal uterine and vaginal bleeding, unspecified; R10.2 Pelvic and perineal pain; Z87.440 Personal history of urinary (tract) infections
CPT/HCPCS: J2790; 76817; 80048; 84702; 85025; 86900; 86901; 90384; 96361; 96374; 96375; 99283; J7030; A4216; J2405; J2791

== ENCOUNTER → 2024-06-07 | Outpatient (CLI) | payer MEDICAID, SELFPAY ==
[2024-06-07 13:05] LABS: AST(SGOT) 18 U/L (15-37); Alanine Aminotransfer ALT/SGPT 34 U/L (13-56); Albumin, Serum 3.6 g/dL (3.2-5.0); Alkaline Phosphatase 70 U/L (45-117); Anion Gap 5 (5-15); BUN 14 mg/dL (7-18); BUN/Creat Ratio 22.2 RATIO (10-20); Calcium,Total 8.6 mg/dL (8.5-10.1); Chloride 106 mmol/L (98-107); Creatinine, Serum 0.63 mg/dL (0.55-1.02); EST Glomerular Filtration Rate 112 mL/min (>60); Est Glom Filt Rate - Afr Amer 135 mL/min (>60); Globulin 3.5 g/dL (2.2-4.2); Glucose 92 mg/dL (74-106); Potassium 3.7 mmol/L (3.5-5.1); Protein, Total 7.1 g/dL (6.4-8.2); Sodium Level 140 mmol/L (136-145)
[2024-06-07 15:24] LABS: Hemoglobin A1c 6.5 % (3.8-5.6)
== END | disposition home or self-care (01) ==
LOC: BIMLAB 09:55
PROVIDERS: PCP Family Medicine; Visit Provider Family Medicine
DX: E10.9 Type 1 diabetes mellitus without complications (principal)
CPT/HCPCS: 36415; 80053; 83036

== ENCOUNTER → 2024-11-23 | Outpatient (CLI) | payer MEDICAID, SELFPAY ==
[2024-11-23 12:43] LABS: Absolute Lymphocyte Count 1.72 X10^3/uL (0.83-4.51); Absolute Neutrophil Count 2.8 X10^3/uL (2.0-7.7); Basophil# 0.05 X10^3/uL; Eosinophil# 0.16 X10^3/uL; Eosinophils% 3.1 % (0-5); Hemoglobin 14.1 g/dL (12.0-15.0); Lymphocyte # 1.72 X10^3/ul (0.83-4.51); Lymphocyte % 33.9 % (19-41); Mean Corp Hgb Conc 33.6 g/dL (32-36); Mean Corpuscular Hgb 30.3 pg (27.0-32.0); Mean Corpuscular Volume 90.1 fL (81-99); Mean Platelet Vol. 10.9 fl (6.2-12.0); Monocyte# 0.39 X10^3/uL; Monocyte% 7.7 % (0-10); NRBC Flagged by Analyzer 0 % (0-5); Neutrophil # 2.75 X10^3/uL (2.7-7.7); Neutrophil % 54.1 % (47-70); Platelet Count 193 K/mm3 (150-450); RBC Distribution Width CV 12.1 % (11.6-14.6); RBC Distribution Width SD 39.8 fl (35.1-43.9); Red Blood Count 4.66 M/mm3 (4.2-5.4); White Blood Count 5.1 K/mm3 (4.4-11.0)
[2024-11-23 15:21] LABS: Microalbumin,Random Urine < 12.0 mg/L (NO RANGE EST.); Microalbumin:Creatinine Ratio UNABLE TO CALCULATE mg/g CRE
[2024-11-23 16:56] LABS: Cholesterol 164 mg/dL (<=200); High Density Lipoprotein 54 mg/dL; Low Density Lipoprotein Calc. 92 mg/dL; Triglycerides 93 mg/dL; Very Low Density Lipoprotein 19 mg/dL (5-40); cholesterol:hdl ratio screen 3.05
[2024-11-23 17:58] LABS: Hemoglobin A1c 7.3 % (<=5.6)
[2024-11-23 17:59] LABS: ALB/GLOB Ratio 1.5 RATIO (0.9-2.4); AST(SGOT) 27 U/L (<=31); Alanine Aminotransfer ALT/SGPT 32 U/L (<=34); Albumin, Serum 4.1 g/dL (3.5-5.0); Alkaline Phosphatase 66 U/L (35-104); Anion Gap 10 (5-15); BUN 14 mg/dL (4-19); BUN/Creat Ratio 23.7 RATIO (10-20); Calcium,Total 8.6 mg/dL (7.6-11.0); Carbon Dioxide 26.4 mmol/L (21.0-32.0); Chloride 102 mmol/L (98-108); Creatinine, Serum 0.59 mg/dL (0.70-1.20); EST Glomerular Filtration Rate 118 (>60); Globulin 2.8 g/dL (2.2-4.2); Glucose 167 mg/dL (70-99); Potassium 3.8 mmol/L (3.3-5.1); Protein, Total 6.9 g/dL (5.9-8.4); Sodium Level 138 mmol/L (133-145)
== END | disposition home or self-care (01) ==
LOC: BIMLAB 09:38
PROVIDERS: PCP Family Medicine; Referring Provider Nurse Practitioner Family; Visit Provider Nurse Practitioner Family
DX: E10.9 Type 1 diabetes mellitus without complications (principal)
CPT/HCPCS: 36415; 80053; 80061; 82043; 82570; 83036; 84439; 84443; 85025